=== PATIENT | male | born 1955 | race Caucasian/White ===

== ENCOUNTER 2022-04-10 08:15 | Outpatient (CLI) | payer MEDICARE, SELFPAY ==
--- NOTE | ~2022-04-10 | US_ITS ---
EXAMINATION: US aorta [facility] scr[facility] DATE: 04/10/2022 08:51 INDICATION: Abdominal aortic aneurysm screening TECHNIQUE: Grayscale, color Doppler, and pulsed Doppler images of the aorta and common iliac arteries were obtained. COMPARISON: None. FINDINGS: The proximal aorta measures 2.4 cm. The mid aorta measures 2.1 cm. The distal aorta measures 1.9 cm. The right common iliac artery measures 1.2 cm. The left common iliac artery measures 1.1 cm. IMPRESSION: 1. Normal caliber abdominal aorta Reviewed, dictated and finalized at location A.
== END 2022-04-10 08:16 | disposition home or self-care (01) ==
PROVIDERS: PCP Internal Medicine; Visit Provider Internal Medicine
DX: Z13.6 Encounter for screening for cardiovascular disorders (principal); Z00.00 Encounter for general adult medical examination without abnormal findings
CPT/HCPCS: 76706

== ENCOUNTER 2022-05-08 15:44 | Observation (INO) | payer MEDICARE, SELFPAY ==
[2022-05-08] VITALS (8 sets, daily range): BP systolic 128–142; BP diastolic 66–75; PULSE 51–74; RESP 12–20; TEMP 35.9–36.8; O2SAT 98–99; BMI 26.9
--- NOTE | ~2022-05-08 | XR_ITS ---
EXAMINATION: XR chest 2V DATE: 05/08/2022 16:33 INDICATION: Left-sided chest pain TECHNIQUE: PA and lateral views of the chest were obtained. COMPARISON: None FINDINGS: The lungs are clear with no focal airspace opacities, pulmonary edema, pleural effusion or pneumothor ax. The cardiomediastinal silhouette is normal. Moderate midthoracic spondylosis with mild anterior w edging of a a few mid and lower thoracic vertebral bodies. IMPRESSION: 1. No acute cardiopulmonary disease. Reviewed, dictated and finalized at location B.
--- NOTE | 2022-05-08 15:50 | ECG_ITS ---
Measurements Intervals [place] Rate: 70 P: 53 CT: 175 QRS: -45 QRSD: 106 T: 41 QT: 364 QTc: 393 Interpretive Statements SINUS RHYTHM LEFT ANTERIOR FASCICULAR BLOCK BASELINE ARTIFACT- I, II, AVR, AVL ABNORMAL ECG Electronically Signed On 05-08-2022 16:17:18 CDT by Shaquille Myles D.O.
[2022-05-08 16:06] LABS: Basophils Percent Auto 0.3 % (0.2-1.2); Eosinophils Absolute Auto 0.1 K/mm3 (0-0.3); Eosinophils Percent Auto 1.6 % (0-4.4); Hematocrit 44.2 % (42.0-52.0); Hemoglobin 14.9 g/dL (14.0-18.0); Immature Granulocyte Absolute 0.01 K/mm3 (0.00-0.031); Immature Granulocyte Percent A 0.2 % (0-0.5); Lymphocytes Absolute Auto 1.38 K/mm3 (0.9-3.2); Lymphocytes Percent Auto 21.8 % (18.3-44.2); Mean Corpuscular HGB Conc 33.7 g/dl (32-36); Mean Corpuscular Hemoglobin 29.5 pg (26-34); Mean Corpuscular Volume 87.5 fl (80-100); Monocytes Absolute Auto 0.6 K/mm3 (0.1-0.6); Neutrophils Absolute Auto 4.2 K/mm3 (1.3-6.7); Neutrophils Percent Auto 66.1 % (45.5-73.1); Platelet Count Result 185 k/mm3 (150-375); Red Blood Count 5.05 M/mm3 (4.6-6.20); Red Cell Distribution Width 12.9 % (11.5-14.5); White Blood Count 6.3 K/mm3 (4.5-10.0)
[2022-05-08 16:15] LABS: Partial Thromboplastin Time 26.7 SECONDS (22.3-36.8); Prothrombin Time 12.7 Seconds (11.1-14.7)
[2022-05-08 16:20] LABS: Alanine Aminotransferase 22 U/L (6-50); Albumin Level 4.4 g/dL (3.5-5.1); Alkaline Phosphatase 46 U/L (38-126); Anion Gap 8 mmol/L (8-16); Aspartate Amino Transferase 31 U/L (17-59); Bilirubin,Total 0.4 mg/dL (0.2-1.3); Blood Urea Nitrogen 24 mg/dL (9-20); Calcium 8.8 mg/dL (8.4-10.2); Carbon Dioxide 24 mmol/L (22-30); Chloride 105 mmol/L (98-107); Estimated CRCL calculation 76 ml/min; Estimated Glomerular Filt Rate > 60; Glucose 111 mg/dL (65-110); Lipase 90 U/L (23-300); Potassium 4.2 mmol/L (3.4-5.0); Sodium 137 mmol/L (137-145)
[2022-05-08 16:32] LABS: Troponin I < 0.012 ng/mL (0.000-0.034)
--- NOTE | 2022-05-08 16:53 | ED.CHESTPAIN ---
HPI - Chest Pain General Chief Complaint: Chest Pain Stated Complaint: CP Time Seen by Provider: 05/08/22 16:36 Source: RN notes reviewed History of Present Illness HPI narrative: Patient presents emergency room from home for chest pain. Patient states he been having intermittent chest pain on the left side of the chest for the past 2 days. Pain is described as a choking in nature and does not radiate states nothing makes the pain better or worse. Denies any radiation of the pain. Patient states that the pain will last for approximately an hour and resolving is having proximally 2-3 episodes a day. Denies any previous cardiac history denies any fevers or chills abdominal pain nausea vomiting Related Data Home Medications Medication Instructions Recorded Confirmed fluticasone propionate 50 2 spray intranasal DAILY 11/11/19 03/23/22 mcg/actuation nasal spray,suspension (Allergy Relief (fluticasone)) Allergies Allergy/AdvReac Type Severity Reaction Status Date / Time aspirin Allergy Severe asthma Verified 05/08/22 16:55 NSAIDS (Non-Steroidal Allergy Intermediate INDUCED Verified 05/08/22 16:55 Anti-Inflamma ASTHMA Review of Systems Review of Systems: Gen.: Denies fevers or chills ENT: Denies congestion Respiratory: Denies shortness of breath or cough CV: See HPI GI: Denies abdominal pain nausea, emesis or diarrhea Musculoskeletal: Denies back pain or muscle pain Neuro: Denies numbness, tingling, weakness or focal weakness Skin: Denies rash Except as documented, all other systems reviewed and negative PMFSH Past Medical History Medical History Rhinitis, chronic Screening for metabolic disorder Screening, lipid Sleep apnea in adult Family History Family History Sibling Hypertension Mother Patient's mother is in good health Father Family history of heart disease in male family member before age 55, Onset Age: 82 Patient's father is Social History Social History Smoking status: Former smoker Second hand tobacco smoke exposure: No Smoking end date: 10/29/86 Alcohol intake: current Exam Narrative: APPEARANCE: No acute distress, nontoxic, resting in bed EYES: EOMI HEENT: Normocephalic, atraumatic, OMM RESPIRATORY: No respiratory distress Clear to auscultation bilaterally with no rhonchi wheezing or rales. CARDIOVASCULAR: Regular rate and rhythm without murmurs rubs or gallops. ABDOMINAL: Soft, nontender, nondistended, no rebound or guarding MUSCULOSKELETAl: Moves all extremities. No clubbing, cyanosis or edema. NEURO: Awake and alert. Following commands, speech normal, no focal deficits SKIN:: Warm, dry. No rashes lesions or abrasions PSYCHIATRIC: Normal affect/mood, Course Course Emergency Course: Patient states he is allergic to aspirin and cannot take Discussed with Dr. Collazo presentation work-up agrees with admission [facility] Discussed with patient and family results of workup and diagnosis. Discussed need for admission. Patient and family understand and agree to current treatment plan Vital Signs Vital signs: Vital Signs Temperature 98.2 F 05/08/22 15:47 Pulse Rate 74 05/08/22 15:47 Respiratory Rate 20 05/08/22 15:47 Blood Pressure 142/75 H 05/08/22 15:47 Pulse Oximetry 99 05/08/22 15:47 Oxygen Delivery Room Air 05/08/22 15:47 Temperature 98.2 F 05/08/22 15:47 Pulse Rate 74 05/08/22 15:47 Respiratory Rate 20 05/08/22 15:47 Blood Pressure 142/75 H 05/08/22 15:47 Pulse Oximetry 99 05/08/22 15:47 Oxygen Delivery Room Air 05/08/22 15:47 MDM - Chest Pain Lab Data Result diagrams: 05/08/22 15:57 05/08/22 15:57 Labs: Lab Results 05/08/22 05/08/22 05/08/22 Range/Units 15:57 15:57 15:57
[2022-05-08 17:59] LABS: SARS-CoV-2 RNA PCR Negative
[2022-05-08 20:03] LABS: Troponin I < 0.012 ng/mL (0.000-0.034)
[2022-05-08 22:06] LABS: Troponin I < 0.012 ng/mL (0.000-0.034)
[2022-05-09] VITALS: BP 118/68; PULSE 56; PULSE 60; RESP 16; TEMP 36.4; O2SAT 99
[2022-05-09 04:00] VITALS: BP 106/75; PULSE 54; RESP 20; TEMP 36.6; O2SAT 97
[2022-05-09 05:24] LABS: Basophils Percent Auto 0.4 % (0.2-1.2); Eosinophils Absolute Auto 0.1 K/mm3 (0-0.3); Eosinophils Percent Auto 2.9 % (0-4.4); Hematocrit 42.6 % (42.0-52.0); Immature Granulocyte Absolute 0.01 K/mm3 (0.00-0.031); Immature Granulocyte Percent A 0.2 % (0-0.5); Lymphocytes Absolute Auto 1.47 K/mm3 (0.9-3.2); Lymphocytes Percent Auto 30.5 % (18.3-44.2); Mean Corpuscular HGB Conc 32.9 g/dl (32-36); Mean Corpuscular Hemoglobin 28.9 pg (26-34); Mean Platelet Volume 10.2 fl (7.4-10.4); Monocytes Absolute Auto 0.6 K/mm3 (0.1-0.6); Monocytes Percent Auto 12.9 % (2.6-8.5); Neutrophils Absolute Auto 2.6 K/mm3 (1.3-6.7); Neutrophils Percent Auto 53.1 % (45.5-73.1); Platelet Count Result 159 k/mm3 (150-375); Red Blood Count 4.84 M/mm3 (4.6-6.20); Red Cell Distribution Width 13.1 % (11.5-14.5); White Blood Count 4.8 K/mm3 (4.5-10.0)
[2022-05-09 05:36] LABS: Alanine Aminotransferase 19 U/L (6-50); Albumin Level 3.7 g/dL (3.5-5.1); Alkaline Phosphatase 42 U/L (38-126); Anion Gap 5 mmol/L (8-16); Aspartate Amino Transferase 24 U/L (17-59); Bilirubin,Total 0.5 mg/dL (0.2-1.3); Blood Urea Nitrogen 20 mg/dL (9-20); Calcium 8.4 mg/dL (8.4-10.2); Carbon Dioxide 22 mmol/L (22-30); Chloride 109 mmol/L (98-107); Estimated CRCL calculation 76 ml/min; Estimated Glomerular Filt Rate > 60; Glucose 96 mg/dL (65-110); Potassium 3.9 mmol/L (3.4-5.0); Sodium 136 mmol/L (137-145)
[2022-05-09 07:58] VITALS: BP 114/69; PULSE 55; RESP 12; TEMP 36.6; O2SAT 99
[2022-05-09 08:00] VITALS: PULSE 56
--- NOTE | 2022-05-09 08:53 | PM.CNCAR ---
History of Present Illness History of Present Illness Consult date/time: 05/09/22 08:53 Reason For Visit: Chest Pain Narrative: Mr. Rios is a 66 year old male with PMFSH Past Medical History Medical History Rhinitis, chronic Screening for metabolic disorder Screening, lipid Sleep apnea in adult Family History Family History (Updated 05/08/22 @ 18:46 by Renetta Paz RN) Sibling Hypertension Liver cancer Mother Patient's mother is in good health Father Family history of heart disease in male family member before age 55, Onset Age: 82 Patient's father is Social History Social History Smoking packs per day: 3 Smoking cigarettes per day: 60.0 Years smoked: 5 Smoking pack-years: 15.00 Smoking status: Former smoker Tobacco type: cigarettes Second hand tobacco smoke exposure: No Smoking end date: 10/29/86 Alcohol intake: current Substance use type: marijuana Living arrangements: with family Meds Home Medications and Allergies Home Medications Medication Instructions Recorded Confirmed Type fluticasone propionate 50 2 spray intranasal DAILY PRN 11/11/19 05/08/22 History mcg/actuation nasal Congestion spray,suspension (Allergy Relief (fluticasone)) Allergies Allergy/AdvReac Type Severity Reaction Status Date / Time aspirin Allergy Severe asthma Verified 05/08/22 16:55 NSAIDS (Non-Steroidal Allergy Intermediate INDUCED Verified 05/08/22 16:55 Anti-Inflamma ASTHMA Vital Signs Vital Signs - 24 hr 05/08/22 15:47 05/08/22 17:53 05/08/22 18:00 Temperature 36.8 C Pulse Rate 74 59 L 59 L Respiratory Rate 20 15 14 Blood Pressure 142/75 H Pulse Oximetry 99 98 99 Oxygen Delivery Room Air 05/08/22 18:01 05/08/22 18:24 05/08/22 18:40 Temperature 36.6 C Pulse Rate 57 L 56 L Respiratory Rate 18 12 Blood Pressure 129/66 129/66 128/66 Pulse Oximetry 98 98 Oxygen Delivery 05/08/22 20:00 05/08/22 20:00 05/08/22 20:00 Temperature 35.9 C L Pulse Rate 63 65 Respiratory Rate 18 Blood Pressure 142/71 H Pulse Oximetry 99 Oxygen Delivery Room Air 05/08/22 22:00 05/09/22 00:00 05/09/22 00:00 Temperature 36.4 C L Pulse Rate 51 L 60 56 L Respiratory Rate 16 Blood Pressure 118/68 Pulse Oximetry 99 Oxygen Delivery 05/09/22 04:00 05/09/22 07:58 Temperature 36.6 C 36.6 C Pulse Rate 54 L 55 L Respiratory Rate 20 12 Blood Pressure 106/75 114/69 Pulse Oximetry 97 99 Oxygen Delivery Results Labs and Meds Result diagrams: 05/09/22 05:02 05/09/22 05:02 Lab results: Cardiac Enzymes 05/08/22 05/08/22 05/08/22 Range/Units 15:57 19:17 21:39 AST 31 (17-59) U/L Troponin I < 0.012 < 0.012 < 0.012 (0.000-0.034) ng/mL 05/09/22 Range/Units 05:02 AST 24 (17-59) U/L Troponin I (0.000-0.034) ng/mL Coagulation 05/08/22 Range/Units 15:57 PT 12.7 (11.1-14.7) Seconds APTT 26.7 (22.3-36.8) SECONDS CBC 05/08/22 05/09/22 Range/Units 15:57 05:02 WBC 6.3 4.8 (4.5-10.0) K/mm3 RBC 5.05 4.84 (4.6-6.20) M/mm3 Hgb 14.9 14.0 (14.0-18.0) g/dL Hct 44.2 42.6 (42.0-52.0) % Plt Count 185 159 (150-375) k/mm3 Lymph # (Auto) 1.38 1.47 (0.9-3.2) K/mm3 [place] # (Auto) 0.6 0.6 (0.1-0.6) K/mm3 Eos # (Auto) 0.1 0.1 (0-0.3) K/mm3 Baso # (Auto) 0.0 0.0 (0.0-0.1) K/mm3 Comprehensive Metabolic Panel 05/08/22 05/09/22 Range/Units 15:57 05:02 Sodium 137 136 L (137-145) mmol/L Potassium 4.2 3.9 (3.4-5.0) mmol/L Chloride 105 109 H (98-107) mmol/L Carbon Dioxide 24 22 (22-30) mmol/L BUN 24 H 20 (9-20) mg/dL Creatinine 0.90 0.90 (0.7-1.3) mg/dL Glucose 111 H 96 (65-110) mg/dL Calcium 8.8 8.4 (8.4-10.2) mg/dL AST 31 24 (17-59) U/L ALT 22 19 (6-50)
--- NOTE | 2022-05-09 09:21 | PM.IMHP ---
H&P: HPI History of Present Illness Date/Time: 05/09/22 09:21 <YURY Schaffer - Last Filed: 05/09/22 10:39> Chief Complaint: Chest pain <YURY Schaffer - Last Filed: 05/09/22 10:39> Narrative: Mr. Rios is a 66 year old male with no significant medical history who presents to the hospital with a complaint of left sided chest pain. He began experiencing intermittent episodes of chest pain about a week ago and states he has been having several episodes of chest pain daily that lasts about an hour. Intensity of the pain is 1-2 and is described as general discomfort/soreness. He denies any associated nausea, diaphoresis, or radiation of the pain to any other location. Did experience some dizziness yesterday after working outside in the heat. No specific aggravating or alleviating factors. Does endorse some muscular soreness/tenderness at the location of pain but is not reproducible to palpation at this time. Currently comfortable and free from chest pain but does state that he has had a couple episodes of chest discomfort since presentation to the hospital. He notes that he and his recently moved and he has been lifting lots of heavy boxes/objects. He is very active and denies having any exertional chest pain. <YURY Schaffer - Last Filed: 05/09/22 10:39> Review of Systems Constitutional: Constitutional: Denies chills, Denies fever(s), Denies headache(s) and Denies malaise <YURY Schaffer - Last Filed: 05/09/22 10:39> Eyes: Eyes: Denies change in vision <YURY Schaffer - Last Filed: 05/09/22 10:39> ENT: Reports Normal hearing present, Denies dizziness, Denies headache(s) and Denies hearing loss <YURY Schaffer - Last Filed: 05/09/22 10:39> Cardiovascular: Cardiovascular: Reports chest pain, Reports chest pain at rest, Denies chest pain with activity, Denies syncope, Denies leg edema, Denies palpitations, Denies dyspnea and Denies dyspnea on exertion <YURY Schaffer - Last Filed: 05/09/22 10:39> Respiratory: Respiratory: Denies cough, Denies dyspnea, Denies dyspnea on exertion and Denies wheezing <YURY Schaffer - Last Filed: 05/09/22 10:39> Gastrointestinal: Gastrointestinal: Denies abdominal pain, Denies constipation and Denies diarrhea <YURY Schaffer - Last Filed: 05/09/22 10:39> Genitourinary: Genitourinary: Denies hematuria and Denies dysuria <YURY Schaffer - Last Filed: 05/09/22 10:39> Musculoskeletal: Musculoskeletal: Denies myalgias, Denies arthralgias and Denies muscle cramps <YURY Schaffer - Last Filed: 05/09/22 10:39> Integumentary/Breasts: Skin/Breast: Denies wounds <YURY Schaffer - Last Filed: 05/09/22 10:39> Neurologic: Reports Normal hearing present, Denies confusion, Denies dizziness, Denies syncope and Denies headache(s) <YURY Schaffer - Last Filed: 05/09/22 10:39> Psychiatric: Psychiatric: Denies anxiety, Denies confusion and Denies depression <YURY Schaffer - Last Filed: 05/09/22 10:39> Endocrine: Endocrine: Denies cold intolerance, Denies flushing, Denies heat intolerance and Denies palpitations <YURY Schaffer - Last Filed: 05/09/22 10:39> Hematologic/Lymphatic: Hematologic/Lymphatic: Denies easy bleeding and Denies easy bruising <YURY Schaffer - Last Filed: 05/09/22 10:39> Allergic/Immunologic: Allergic/Immunologic: Denies wheezing <YURY Schaffer - Last Filed: 05/09/22 10:39> PMFSH Past Medical History Medical History: Medical History Rhinitis, chronic Screening for metabolic disorder Screening, lipid Sleep apnea in adult <Federica Martinez APN-C - Last Filed: 05/09/22 10:39> Family History Family History: Family History (Updated 05/08/22 @ 18:46 by Renetta Paz, RN) Sibling Hypertension Liver cancer Mother Patient's mother is in good health Father Dece
[2022-05-09 10:00] VITALS: PULSE 58
--- NOTE | 2022-05-09 10:40 | PM.DS ---
DS: Admitting Diagnosis Discharge Date 05/09/2022 Admitting Diagnosis chest pain DS: Discharge Diagnosis Discharge Diagnosis (1) Chest pain: Code(s): R07.9 - Chest pain, unspecified Status: Acute Assessment and Plan: Atypical chest pain probably musculoskeletal. EKG shows sinus rhythm with LAFB, no ST-T segment abnormalities concerning for ischemia. Serial cardiac enzymes are negative. No significant risk factors for CAD, although CAD cannot be excluded. Plan to discharge patient home with intention of pursuing exercise stress test in the office within the next couple of weeks. Discussed this plan with patient who is agrees and is comfortable with this plan. DS: Summary Hospital Course Reason for hospitalization: chest pain Hospital Course: Entered hospital with chest pain, admitted for further evaluation. Has had some episodes of chest discomfort while hospitalized. No evidence of ACS, chest pain atypical and not cardiac. Plan to discharge patient home today with intention of outpatient stress test in the office. Time Spent with Patient Time attestation: Total time spent providing and/or coordinating discharge services: 45 minutes Exam Const: General: comfortable, no acute distress, alert and awake; No confusion Orientation/consciousness: patient oriented x3 and No confusion HENMT: Head: normal to inspection Eyes: General: appearance normal, both eyes and all related structures Pupils: Equal, round and reactive pupils present Neck: Neck: normal visual inspection, supple and no JVD Carotids: normal carotid upstroke Resp: Effort & Inspection: normal respiratory effort Auscultation: clear to auscultation bilaterally Cardio: Rate: regular rate Rhythm: regular rhythm Heart sounds: S1 normal heart sound present, S2 normal heart sound present and no murmurs GI: Auscultation: normal bowel sounds Skin: General skin exam: normal color Neuro: General: patient oriented x3 and No confusion Cranial nerves: Yes Equal, round and reactive pupils present and Yes Normal hearing present Extrem: General: normal to inspection Psych: Appearance: grossly normal Mental Status: mental status grossly normal DS: Data Data Completed and Pending Labs on day of discharge: Labs from last 24 hours 05/09/22 05/09/22 05/08/22 05:02 05:02 21:39 WBC 4.8 RBC 4.84 Hgb 14.0 Hct 42.6 MCV 88.0 MCH 28.9 MCHC 32.9 RDW 13.1 Plt Count 159 MPV 10.2 Immature Gran % (Auto) 0.2 Neut % (Auto) 53.1 Lymph % (Auto) 30.5 [place] % (Auto) 12.9 H Eos % (Auto) 2.9 Baso % (Auto) 0.4 Lymph # (Auto) 1.47 [place] # (Auto) 0.6 Eos # (Auto) 0.1 Baso # (Auto) 0.0 Abs Immat Gran (auto) 0.01 Absolute Neuts (auto) 2.6 Absolute Nucleated RBC 0.0 Nucleated RBC % 0.0 PT INR APTT Sodium 136 L Potassium 3.9 Chloride 109 H Carbon Dioxide 22 Anion Gap 5 L BUN 20 Creatinine 0.90 Estim Creat Clear Calc 76 Estimated GFR > 60 Glucose 96 Calcium 8.4 Total Bilirubin 0.5 AST 24 ALT 19 Alkaline Phosphatase 42 Troponin I < 0.012 Total Protein 6.0 L Albumin 3.7 Lipase SARS-CoV-2 RNA (RT-PCR) 05/08/22 05/08/22 05/08/22 19:17 17:17 15:57 WBC RBC Hgb Hct MCV MCH MCHC RDW Plt Count MPV Immature Gran % (Auto) Neut % (Auto) Lymph % (Auto) [place] % (Auto) Eos % (Auto) Baso % (Auto) Lymph # (Auto) [place] # (Auto) Eos # (Auto) Baso # (Auto) Abs Immat Gran (auto) Absolute Neuts (auto) Absolute Nucleated RBC Nucleated RBC % PT INR APTT Sodium 137 Potassium 4.2 Chloride 105 Carbon Dioxide 24 Anion Gap 8 BUN 24 H Creatinine 0.90 Estim Creat Clear Calc 76 Estimated GFR > 60 Glucose 111 H Calcium 8.8 Total Bilirubin 0.4 AST 31 ALT 22 Alkaline Phosphatase
== END 2022-05-09 11:44 | disposition home or self-care (01) ==
LOC: ANHED 17:29 → ANHIMU 17:45
PROVIDERS: Admitting Provider Internal Medicine Cardiovascular Disease; Emergency Provider Emergency Medicine; PCP Family Medicine; Visit Provider Internal Medicine Cardiovascular Disease
DX: R07.9 Chest pain, unspecified (principal); J31.0 Chronic rhinitis; G47.30 Sleep apnea, unspecified; F12.90 Cannabis use, unspecified, uncomplicated; Z87.891 Personal history of nicotine dependence; Z20.822 Contact with and (suspected) exposure to COVID-19; Z79.51 Long term (current) use of inhaled steroids; I44.4 Left anterior fascicular block
CPT/HCPCS: 36415; 71046; 80053; 83690; 84484; 85025; 85610; 85730; 93005; 99285; C9803; G0378; U0003; U0005

== ENCOUNTER 2023-01-16 07:30 | Outpatient (CLI) | payer MEDICARE, SELFPAY ==
--- NOTE | 2023-01-16 07:42 | ECHO_ITS ---
Patient Info Name: Khai Rios Age: 67 years : 1955 Gender: Male Ht: 71 in Wt: 200 lbs BSA: 2.15 m2 HR: 60 bpm BP: 132 / 80 mmHg Technical Quality: Good Exam Date: 01/16/2023 7:51 AM Exam Location: [facility] Patient Status: Outpatient Admit Date: 01/16/2023 Staff Ordering Physician: Jimbo Kwon DO Dry Color Tester: Andreea Stewart RDCS Attending Provider: Jimbo Kwon DO Referring Physician: Doyle MCWILLIAMS; Exam Type: CA echo doppler color flow Study Info Indications R06.09 - Other forms of dyspnea Complete two-dimensional, color flow and Doppler transthoracic echocardiogram is performed. Summary 1. Complete two-dimensional, color flow and Doppler transthoracic echocardiogram is performed. 2. Left ventricular chamber dimension is normal. 3. Left ventricular systolic function is normal, estimated at 60-65%. 4. The left ventricular diastolic function is grade I diastolic dysfunction. 5. E/e' 7 is not elevated. 6. Global longitudinal strain is mildly abnormal at -16.8%. 7. No pulmonary hypertension, estimated pulmonary arterial systolic pressure is 27 mmHg. Left Ventricle E/e' 7 is not elevated. Global longitudinal strain is mildly abnormal at -16.8%. Left ventricular chamber dimension is normal. Left ventricular systolic function is normal, estimated at 60-65%. The left ventricular diastolic function is grade I diastolic dysfunction. Right Ventricle Right ventricular systolic function is normal and with normal TAPSE 2.2 cm. Right ventricular chamber dimension is normal. Left Atria Left atrial chamber dimension is normal. Right Atria Right atrial chamber dimension is normal. Aortic Valve The aortic valve is trileaflet. There is no aortic valve stenosis. There is no aortic valve regurgitation. Pulmonic Valve There is no pulmonic regurgitation. Mitral Valve There is no mitral valve stenosis. There is no mitral valve regurgitation. Tricuspid Valve There is no tricuspid valve regurgitation. No pulmonary hypertension, estimated pulmonary arterial systolic pressure is 27 mmHg. Pericardium/Pleural There is no pericardial effusion. Inferior Vena Cava Normal inferior vena cava with >50% collapse upon inspiration consistent with normal right atrial pressure, 5 mmHg. Aorta The aortic root size at the sinus of Valsalva is normal. Left Ventricular Outflow Tract Name Value Normal LVOT 2D LVOT Diameter 2.0 cm LVOT Doppler LVOT Peak Gradient 4 mmHg LVOT Mean Gradient 2 mmHg LVOT VTI 20 cm LVOT VTI/AV VTI Ratio 0.9 LVOT Stroke Volume 64 ml LVOT CO 3.6 l/min LVOT CI 1.7 l/min/m2 Pulmonic Valve Name Value Normal RVOT Doppler
--- NOTE | 2023-01-18 15:23 | WPDHOLTEREM ---
Holter/Event Monitor Holter/Event Monitor Date of procedure: 01/16/23 Holter/Event Procedure: 48 Hr Holter Monitor Indications: Cardiac arrhythmia Conclusion: 1. 48 hour holter monitor on 01/16/23. 2. Underlying rhythm is sinus rhythm. HR range 42-122 bpm; average HR 68 bpm. HR at 42 bpm was at 03:47. 3. There are 105 premature supraventricular complexes and 16 supraventricular bigeminy. No supraventricular tachycardia. 4. There are 4 premature ventricular complexes and 1 ventricular triplet. No ventricular tachycardia. 5. No sinoatrial or atrioventricular blocks. No significant pauses greater than 2 seconds. 6. Patient reports symptoms of strong heart beat which demonstrate sinus bradycardia at 58 bpm.
== END 2023-01-16 07:31 | disposition home or self-care (01) ==
LOC: ANHCARD 07:31
PROVIDERS: PCP Family Medicine; Visit Provider Family Medicine
DX: R07.9 Chest pain, unspecified (principal); I49.9 Cardiac arrhythmia, unspecified; R06.09 Other forms of dyspnea
CPT/HCPCS: 93225; 93226; 93306

== ENCOUNTER 2024-04-14 08:30 | Outpatient (CLI) | payer MEDICARE, SELFPAY ==
[2024-04-14 13:52] LABS: Alanine Aminotransferase 22 U/L (6-50); Albumin Level 4.1 g/dL (3.5-5.1); Alkaline Phosphatase 49 U/L (38-126); Anion Gap 7 mmol/L (4-12); Aspartate Amino Transferase 45 U/L (17-59); Bilirubin,Total 0.8 mg/dL (0.2-1.3); Blood Urea Nitrogen 19 mg/dL (9-20); Carbon Dioxide 24 mmol/L (22-30); Chloride 107 mmol/L (98-107); Cholesterol 162 mg/dL (0-200); Estimated Glomerular Filt Rate > 60; Glucose 93 mg/dL (65-110); HDL Direct 47 mg/dL; Potassium 4.2 mmol/L (3.4-5.0); Sodium 138 mmol/L (137-145); Triglycerides 52 mg/dL (<150)
[2024-04-14 14:16] LABS: Prostate Specific Antigen 6.7 ng/mL (< OR = 4.0)
[2024-04-14 14:21] LABS: LDL Cholesterol Direct 101 mg/dL
[2024-04-14 14:25] LABS: Vitamin D 25 Hydroxy 34.1 ng/mL
== END 2024-04-14 08:31 | disposition home or self-care (01) ==
LOC: ANHGOSHLAB 08:31
PROVIDERS: PCP Family Medicine; Visit Provider Family Medicine
DX: Z12.5 Encounter for screening for malignant neoplasm of prostate (principal); Z13.228 Encounter for screening for other metabolic disorders; E55.9 Vitamin D deficiency, unspecified; Z13.220 Encounter for screening for lipoid disorders
CPT/HCPCS: 36415; 80053; 80061; 82306; 84153; G0103

== ENCOUNTER 2024-05-12 10:22 | Outpatient (CLI) | payer MEDICARE, SELFPAY | END 2024-05-12 10:23 | disposition home or self-care (01) | PROVIDERS: PCP Family Medicine; Visit Provider Family Medicine | DX: R97.20 Elevated prostate specific antigen [PSA] (principal) | CPT/HCPCS: 36415; 84153 ==

== ENCOUNTER 2024-06-04 15:05 | Outpatient (CLI) | payer MEDICARE, SELFPAY ==
--- NOTE | ~2024-06-04 | XR_ITS ---
3 VIEWS THORACIC SPINE Ordering provider: Jimbo Kwon DO History: . Cervicalgia. post pain adjacent to L shoulder blade,no inj . Comparison: None. FINDINGS: VERTEBRAL BODIES: Loss of height is seen in the midthoracic area and multiple vertebrae. Most likely old changes. No definite visible acute fracture or subluxation. Degenerative changes of the spine. DISK SPACES: Multilevel degenerative disc disease in the mid and lower thoracic area. SOFT TISSUES: Normal. IMPRESSION: No definite acute osseous abnormality of the thoracic spine. Multilevel anterior loss of height suggestive of chronic compression fractures in the mid and lower t horacic area. Reviewed, dictated and finalized at location A. IMPRESSION: No definite acute osseous abnormality of the thoracic spine. Multilevel anterior loss of height suggestive of chronic compression fractures in the mid and lower thoracic area.
--- NOTE | ~2024-06-04 | XR_ITS ---
XR shoulder LT min 2V 06/04/2024 15:24 Indication: Left shoulder pain Procedure: 5 views left shoulder Comparison: No prior studies for comparison. Findings: There is mild glenohumeral joint osteoarthritis. No fracture or traumatic malalignment. No soft tissue abnormality. No foreign bodies. Impression: 1: Mild left glenohumeral joint osteoarthritis. Reviewed, dictated and finalized at location B. Impression: 1: Mild left glenohumeral joint osteoarthritis.
== END 2024-06-04 15:06 | disposition home or self-care (01) ==
LOC: ANHIMG 15:06
PROVIDERS: PCP Family Medicine; Visit Provider Family Medicine
DX: M19.012 Primary osteoarthritis, left shoulder (principal); R29.890 Loss of height
CPT/HCPCS: 72072; 73030

== ENCOUNTER 2025-04-13 08:59 | Outpatient (CLI) | payer MEDICARE, SELFPAY ==
--- OUTSIDE RECORDS SUMMARY | 2025-04-13 09:21 | XMS_ITS | Clinical Summary ---
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[employer] Gender Identity Not on file Sexual Orientation Not on file Plan of Treatment Health Maintenance Due Date Last Done Comments DTAP/TDAP/TD VACCINES (1 - Tdap) 1975 COLORECTAL SCREENING 2001 Colorectal Cancer Screening 2001 FIT-DNA Q 3 years 2001 FIT/FOBT Q 1 year 2001 Flex Sig/CT Colonography Q 5 years 2001 PNEUMOCOCCAL VACCINE 50+ YEA RS (1 of 1 - PCV) 2006 ZOSTER VACCINE (1 of 2) 2006 INFLUENZA VACCINE (#1) 2024 08/04/2019 COVID-19 Vaccine ( season) 2024, 11/23/2020 RSV VACCINE (60+ or ) (1 - 1-dose 75+ series) 2031 Insurance [employer] BLUE ACCESS/TRUE BLUE PPO Care Teams Department Assistant Relationship Specialty Start Date End Date Mike Reyes MD [address] [place] [phone] PCP - General Internal Medicine 12/14/20
[2025-04-13 21:03] LABS: Basophils Absolute Auto 0.1 K/mm3 (0.0-0.1); Basophils Percent Auto 0.9 % (0.2-1.2); Eosinophils Absolute Auto 0.1 K/mm3 (0-0.3); Eosinophils Percent Auto 2.4 % (0-4.4); Hematocrit 45.7 % (42.0-52.0); Hemoglobin 14.8 g/dL (14.0-18.0); Immature Granulocyte Absolute 0.01 K/mm3 (0.00-0.031); Immature Granulocyte Percent A 0.2 % (0-0.5); Lymphocytes Absolute Auto 1.61 K/mm3 (0.9-3.2); Lymphocytes Percent Auto 29.9 % (18.3-44.2); Mean Corpuscular HGB Conc 32.4 g/dl (32-36); Mean Corpuscular Hemoglobin 28.5 pg (26-34); Mean Corpuscular Volume 88.1 fl (80-100); Mean Platelet Volume 10.8 fl (7.4-10.4); Monocytes Absolute Auto 0.6 K/mm3 (0.1-0.6); Monocytes Percent Auto 10.8 % (2.6-8.5); Neutrophils Percent Auto 55.8 % (45.5-73.1); Platelet Count Result 188 k/mm3 (150-375); Red Blood Count 5.19 M/mm3 (4.6-6.20); Red Cell Distribution Width 13.3 % (11.5-14.5); White Blood Count 5.4 K/mm3 (4.5-10.0)
[2025-04-13 22:04] LABS: Alanine Aminotransferase 25 U/L (6-50); Albumin Level 4.3 g/dL (3.5-5.1); Alkaline Phosphatase 46 U/L (38-126); Anion Gap 5 mmol/L (4-12); Aspartate Amino Transferase 36 U/L (17-59); Bilirubin,Total 0.6 mg/dL (0.2-1.3); Blood Urea Nitrogen 19 mg/dL (9-20); Calcium 9.4 mg/dL (8.4-10.2); Carbon Dioxide 27 mmol/L (22-30); Chloride 106 mmol/L (98-107); Cholesterol 178 mg/dL (0-200); Estimated Glomerular Filt Rate > 60; Glucose 94 mg/dL (65-110); HDL Direct 48 mg/dL; Potassium 4.8 mmol/L (3.4-5.0); Sodium 138 mmol/L (137-145); Total Protein 7.2 g/dL (6.3-8.2); Triglycerides 99 mg/dL (<150)
[2025-04-13 22:14] LABS: LDL Cholesterol Direct 95 mg/dL
== END 2025-04-13 09:00 | disposition home or self-care (01) ==
LOC: ANHGOSHLAB 09:00
PROVIDERS: PCP Internal Medicine; Visit Provider Nurse Practitioner
DX: E78.5 Hyperlipidemia, unspecified (principal); Z13.220 Encounter for screening for lipoid disorders; Z13.228 Encounter for screening for other metabolic disorders; Z13.29 Encounter for screening for other suspected endocrine disorder
CPT/HCPCS: 36415; 80053; 80061; 85025

== ENCOUNTER 2025-10-19 11:07 | Emergency (ER) | payer MEDICARE, SELFPAY ==
--- OUTSIDE RECORDS SUMMARY | 2025-07-16 08:20 | XMS_ITS ---
Author Organization 1 OF [facility] Address [address] [place] [address] Care Team Providers Care Machinist General Name Role Phone UNKNOWN, UNKNOWN Primary Care Provider Unavailab Tien Donahue Unavailable Allergies Allergen (clinical drug ingredient) Drug/Non Drug Allergy documented on EMR Reaction Allergy Type Onset Date Status aspirin Aspirin Unknown Drug Allergy Active Non-steroidal anti-inflammatory agent (FN) NSAIDs Unknown Drug Allergy Active REASON FOR VISIT RFC Rt foot pain / bump on bottom of foot Medications Medication SIG (Take, Route, Frequency, Duration) Notes Start Date End Date Status Omeprazole Active Social History Tobacco Use: Social History Observation Description Date Details (start date - stop date) Former Smoker NA - NA Social History Tobacco Use: Social Info Question Answer Notes Tobacco Control (Standard) Tobacco use: Former smoker Additional Details Category Social Info Options Details Miscellaneous: Exercise: 3-4 times per week Drugs/Alcohol: Do you smoke marijuana? 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 Advised against Hoka brand if he feels unstable, as his foot type may not be suitable. - Discussion regarding custom orthotics. Explained they are made on-site and cost $477. Not covered by Medicare or his secondary insurance, but may be covered by his flex plan. For his condition, a metatarsal pad would be incorporated to offload pressure from the bony prominence. Plan is to try new shoes first and consider orthotics if symptoms persist. - Advised to stay away from [employer] as they sell expensive, [id number] inserts. - Recommended wearing hiking boots when on rough terrain. - Provided a coupon for [employer] [facility]. - Follow-up in one month to assess progress. Advised he can cancel the appointment if doing well. Interventions: - The callus under the third metatarsal head on the right foot was debrided with a scalpel. - Patient education provided on the importance of supportive footwear and the role of a stiff sole in reducing stress on the foot. Explained how loss of the fatty cushion on the ball of the foot contributes to the issue. Showed a sample of our custom orthotic. Evaluation: - Patient expressed understanding of the plan. Scheduled follow-up appointment. Plan Of Treatment Treatment Notes Assessment Notes Other Plan: - Recommended new, supportive athletic shoes (e.g., Powell, New Balance, Saucony, Hoka). Advised against [employer]oka brand if he feels unstable, as his foot type may not be suitable. - Discussion regarding custom orthotics. Explained they are made on-site and cost $477. Not covered by Medicare or his secondary insurance, but may be covered by his flex plan. For his condition, a metatarsal pad would be incorporated to offload pressure from the bony prominence. Plan is to try new shoes first and consider orthotics if symptoms persist. - Advised to stay away from [employer] as they sell expensive, [id number] inserts. - Recommended wearing hiking boots when on rough terrain. - Provided a coupon for [employer] shoe store. - Follow-up in one month to assess progress. Advised he can cancel the appointment if doing well. Interventions: - The callus under the third metatarsal head on the right foot was debrided with a scalpel. - Patient education provided on the importance of supportive footwear and the role of a stiff sole in reducing stress on the foot. Explained how loss of the fatty cushion on the ball of the foot contributes to the issue. Showed a sample of our custom orthotic. Evaluation: - Patient expressed understanding of the plan. Scheduled follow-up appointment. History and Physical Notes * HPI (History of Present Illness) Category Sub-Category Detail Notes Category Not es MA assisting with visit: HPI/Rooming: Luis Alfredo Chart Prep Leonardo Examination Category Sub-Category Detail Notes Category Not es General Examination Mental status: Cooperative, Oriented to person, place and time, Mood and affect: normal, Judgement and intellect: normal with appropriate response to questions Shoes today: slip on shoes Constitutional / Appearance: No acute di stress , Well nourished, Appropriate personal hygiene Lower Extremity VASCULAR: Venous insufficiency edema: insignificant bilateral Pulses: DP pulse diminished bilateral; PT pulse absent bilateral Temperature gradient: decreased from pro ximal to distal bilateral Pedal hair: sparse / absent bila teral Lower Extremity NEURO: General sensation appears XXXX Muscle tone diminished bilateral Lower Extremity MSK: Foot type: Bilateral lower extr emity exhibits Diagnostic Studies: X-rays of left lower extremity: 3 views of left foot: Significant findings include: X-rays of right lower extremity: 3 views of right foot: , Significant findings include: Lower Extremity DERM: Skin: relatively dry, thin, atrophic, no suspicious lesions, bilateral Nails: Nail plates of: TA-T 9 appear relatively thickened, dystrophic, discolored, incurvated. Hyperkeratotic lesions LEFT foot: no sig nificant hpk lesions noted Hyperkeratotic lesions RIGHT foot: sub 3 rd Progress Notes * Krish RIOS:[birth year] (70 yo M)Acc No.[id number]:07/16/2025 Progress Notes Patient: Khai Mccarty Provider: Orin Sultana DPM :1955 A ge:70 Y S ex:Male Date:07/16/2025 Address:[address] , [facility] Pcp:UNKNOWN UNKNOWN Subjective: * Chief Complaints: * R FC Rt foot pain / bump on bottom of foot * HPI: Erna Murphy assisting with visit:: Chart Prep Dominic wilson. HPI/Rooming: Ava srivastava reason for visit:: 70 year old male PTO - Right foot pain. - Reports a callus on the bottom of the right foot that swells and feels bad. The callus recurs despite being ground down. Onset over the last several months, getting progressively worse. Reports relief when grinding the callus off. States cannot wait to remove shoes at the end of the day. - No significant pain reported when standing barefoot in the office today. - PMHx: Previous use of custom orthotics years ago, which were helpful but wore out. History of recurrent ankle sprains on both feet. History of a left ankle fracture (likely fibula) from rolling over on a curb in [place]; was not casted per preference. Notes presence of bone spurs was mentioned to him after reviewing the X-ray for that injury. - Current medications: None mentioned. 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 Stood for four hours yesterday. Walks a lot. Wears waterproof, flexible-soled shoes for work. Sometimes works on rough terrain, for which he wears hiking boots. Semi-retired from [employer]. - Allergies: None mentioned. Objective: - Physical examination findings: Callus noted under the third metatarsal head of the right foot. A small callus is also present on another area of the foot, which is non-symptomatic. Plantar fat pad atrophy, bilateral. - Gait analysis and biomechanical examination findings: Examination of stance reveals a fairly normal foot type. The patient's shoes are noted to be excessively flexible in the sole, providing minimal support. Uses minimally supportive prefabricated insoles. - Results of any diagnostic tests performed or reviewed: In-office X-ray of the right foot reviewed. Second and third metatarsals are of almost equal length. The fourth metatarsal is significantly shorter. The third metatarsal is slightly long, disrupting the normal parabolic curve and creating a pressure point. Assessment: - Prominent third metatarsal, right foot, causing a painful callus. - Plantar fat pad atrophy, bilateral. * Medical History: Asthma Gastroesophageal reflux disease (GERD) Cancer Medical History Verified * Surgical History: Denies Past Surgical History. Surgical History verified. * Family History: F amily History Verified.. diabetes. * Social History: T obacco Use: T obacco Control (Standard) T obacco use: F ormer smoker D rugs/Alcohol: D o you smoke marijuana?: Denies. Alcohol use: Social alcohol use. Recreational drugs: Patient denies recreational drug use. M iscellaneous: E xercise: 3-4 times per week. S ocial History Verified. * Medications: T akingOmeprazole Medication List reviewed and reconciled with the patientTaking Omeprazole Medication List reviewed and reconciled with the patient * Allergies: A spirinNSAIDs Objective: * Vitals: W t:195lbs, Wt-k.45 kg, Ht:70in, BMI:27.98Index. * Examination: G eneral Examination: Constitutional / Appearance: N o acute distress , Well nourished, Appropriate personal hygiene. Mental status: C ooperative, Oriented to person, place and time, Mood and affect: normal, Judgement and intellect: normal with appropriate response to questions. Shoes today: s lip on shoes. L ower Extremity VASCULAR: : Pulses: D P pulse diminished bilateral; PT pulse absent bilateral. Temperature gradient: d ecreased from proximal to distal bilateral. Pedal hair: s parse / absent bilateral. Venous insufficiency edema: i nsignificant bilateral. ? L ower Extremity DERM: : Skin: r elatively dry, thin, atrophic, no suspicious lesions, bilateral. Nails: N ail plates of:TA-Y0sxntde relatively thickened, dystrophic, discolored, incurvated. . Hyperkeratotic lesions LEFT foot: n o significant hpk lesions noted. Hyperkeratotic lesions RIGHT foot: s ub 3rd. ? L ower Extremity NEURO: : General sensation appears X XXX. Muscle tone d iminished bilateral. L ower Extremity MSK: : Foot type: B ilateral lower extremity exhibits. ? D iagnostic Studies: : X-rays of left lower extremity: 3 views ofleftfoot: Significant findings include: . X-rays of right lower extremity: 3 views ofrightfoot: , Significant findings include: . Assessment: * Assessment: 1. P rominent metatarsal head of right foot - M21.6X1 (Primary) 2 . 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 Modifiers: [place] 71191 X-RAY FOOT (3 views). Modifiers: RT * Electronic signature of Chava Sultana DPM on 10/19/2025 at 01:02 PM SURFACE WATER MANAGER Sign off status: Pending * Provider: Orin Sultana [facility] Date: 0 07/16/2025 Generated for Glen fallon/Anabella/Vijayitting on: 1 12/20/2024 01:02 PM SURFACE WATER MANAGER
--- OUTSIDE RECORDS SUMMARY | 2025-08-25 01:40 | XMS_ITS ---
Author Organization 1 OF [facility] Address [address] [place] [address] Care Team Providers Care Pastry Chef Name Role Phone UNKNOWN, UNKNOWN Primary Care Provider Unavailab Tien Donahue Unavailable [phone] REASON FOR VISIT f/u Prominent metatarsal head of right foot Encounters Encounter Location Date Provider Diagnosis 1 OF [facility] [address] [place] [address] 08/25/2025 Tien Sultana Plan Of Treatment No Information Progress Notes * GABRIELKhaiDOB:[birth year] (70 yo M)Acc No.[id number]:08/25/2025 Progress Notes Patient: Khai Mccarty Provider: Orin Sultana DPM :1955 A ge:70 Y S ex:Male Date:08/25/2025 Address:[address] , [facility] Pcp:UNKNOWN UNKNOWN Subjective: * Chief Complaints: * f /u Prominent metatarsal head of right foot * Electronic signature of Chava Sultana DPM on 10/19/2025 at 01:02 PM BOTTLING ROOM WORKER Sign off status: Pending * Provider: Orin Sultana [facility] Date: Generated for Printi ng/Faxing/eTransmitting on: 12/20/2024 01:02 PM BOTTLING ROOM WORKER
--- OUTSIDE RECORDS SUMMARY | 2025-09-03 04:00 | XMS_ITS ---
Author Organization 1 OF Orin [facility]gen [facility] Address [address] [address] Care Team Providers Care Photo Finisher Name Role Phone UNKNOWN, UNKNOWN Primary Care Provider Unavailab Tien Donahue Unavailable REASON FOR VISIT Orthotic FABRICATE Encounters Encounter Location Date Provider Diagnosis [facility] [address] [facility] [address] [place] [address] 09/03/2025 Tien Sultana Plan Of Treatment No Information Progress Notes * TANISHA KhaiDOB:[birth year] (70 yo M)Acc No.[id number]:09/03/2025 Progress Notes Patient: Khai Mccarty Provider: Orin Sultana DPM :1955 A ge:70 Y S ex:Male Date:09/03/2025 Address:[address] [id number] Pcp:UNKNOWN UNKNOWN Subjective: * Chief Complaints: * O rthotic FABRICATE * Electronic signature of Chava Sultana DPM on 10/19/2025 at 01:02 PM ADULT MANAGER Sign off status: Pending * Provider: Orin Sultana [facility] Date: 11/03/2024 Generated for Terrai ng/Faxing/eTransmitting on: 12/20/2024 01:02 PM ADULT MANAGER
--- OUTSIDE RECORDS SUMMARY | 2025-09-18 01:40 | XMS_ITS ---
Author Organization 1 OF [facility] Address [address] [address] Care Team Providers Care Educational Psychologist Name Role Phone UNKNOWN, UNKNOWN Primary Care Provider Unavailab Tien Donahue Unavailable Allergies Allergen (clinical drug ingredient) Drug/Non Drug Allergy documented on EMR Reaction Allergy Type Onset Date Status aspirin Aspirin Unknown Drug Allergy Active Non-steroidal anti-inflammatory agent (FN) NSAIDs Unknown Drug Allergy Active REASON FOR VISIT orthotic follow up Encounters Encounter Location Date Provider Diagnosis 1 OF [facility]in [facility]ult[facility] [address] [employer] [address] [place] [address] 09/18/2025 Tien Sultana Prominent metatarsal head of right foot M21.6X1 and 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 Advised on self-adjustment of the pad at home for optimal placement before it is permanently glued. Discussed that if symptoms do not improve, the next step may be a steroid injection. Continue wearing supportive footwear like New Balance and Keen shoes. Follow-up in two weeks to assess response to orthotic modification. Instructed to call if there is a significant flare-up or an obvious issue with the orthotic. Interventions: The metatarsal pad on the right custom orthotic was replaced with a larger one and positioned more distally. The patient stood on the modified orthotic and reported it felt better, without the sensation of a foreign object. Evaluation: Patient reported immediate improvement in comfort with the adjusted orthotic. Will monitor response to treatment over the next two weeks. Additional Notes: Educated on the nature of a neuroma as a pinched nerve between the metatarsal bones. Explained that initial treatment for neuroma and capsulitis is similar (orthotics, reducing swelling). Plan Of Treatment Treatment Notes Assessment Notes Other Plan: Adjust right orthotic by replacing the metatarsal pad with a larger one and placing it more distally to better offload the metatarsal heads. Advised on self-adjustment of the pad at home for optimal placement before it is permanently glued. Discussed that if symptoms do not improve, the next step may be a steroid injection. Continue wearing supportive footwear like New Balance and Keen shoes. Follow-up in two weeks to assess response to orthotic modification. Instructed to call if there is a significant flare-up or an obvious issue with the orthotic. Interventions: The metatarsal pad on the right custom orthotic was replaced with a larger one and positioned more distally. The patient stood on the modified orthotic and reported it felt better, without the sensation of a foreign object. Evaluation: Patient reported immediate improvement in comfort with the adjusted orthotic. Will monitor response to treatment over the next two weeks. Additional Notes: Educated on the nature of a neuroma as a pinched nerve between the metatarsal bones. Explained that initial treatment for neuroma and capsulitis is similar (orthotics, reducing swelling). History and Physical Notes * HPI (History of Present Illness) Category Sub-Category Detail Notes Category Not es Primary reason for visit: 70 y/o male RTO for f/u orthotic fabrication performed on 09/03/2025. Follow-up visit for right foot orthotic discomfort. Reports callus keeps returning. Orthotic pad feels uncomfortable after being on for a while, noticeable early in the day. Has been using orthotics for a couple of weeks. Reports a sensation of something radiating down from the third toe, feeling out of place by the end of the day, with an occasional popping sensation. Reports a feeling like the sock is bunched up under the toes. Prior to orthotics, pain was constant, particularly in the morning and at the end of the day with prolonged standing. Orthotics have provided some improvement, but the original issue persists at the end of the day. Denies numbness in the toes. Footwear: Wears New Balance shoes which have been helpful. Also wears [employer] brand leather boots for ankle support, which have been owned for 5-6 months. JU assisting with visit: HPI/Rooming: Meri Chart Prep Shayla Examination Category Sub-Category Detail Notes Category Not es General Examination Mental status: Cooperative, Oriented to per son, place and time, Mood and affect: normal, Judgement and intellect: normal with appropriate response to questions Objective: Physical examination of the right foot revealed a palpable pop on manipulation of the third intermetatarsal space, suggestive of a positive Karrie's sign. Sensation testing showed diminished sensation on the inside of the third toe and very little feeling in the fifth toe. Sensation was described as dull. Pain was elicited with palpation of the third intermetatarsal space. A pressure point was noted on the plantar aspect of the foot. Left orthotic is reported to be comfortable. Shoes today: Hiking Boots Exam unchanged from prior visit: with no significant changes in appearance or condition of feet Constitutional / Appearance: No acute di stress , Well nourished, Appropriate personal hygiene Progress Notes * Khai RIOSDOB:[birth year] (70 yo M)Acc No.[id number]:09/18/2025 Progress Notes Patient: Khai Mccarty Provider: Orin Sultana DPM :1955 A ge:70 Y S ex:Male Date:09/18/2025 Address:[id number] Pcp:UNKNOWN UNKNOWN Subjective: * Chief Complaints: * O rthotic follow up * HPI: Erna Murphy assisting with visit:: Chart Prep Y matt. HPI/Rooming: Tashia srivastava reason for visit:: 70 y/o male RTO for f/u orthotic fabrication performed on 09/03/2025. Follow-up visit for right foot orthotic discomfort. Reports callus keeps returning. Orthotic pad feels uncomfortable after being on for a while, noticeable early in the day. Has been using orthotics for a couple of weeks. Reports a sensation of something radiating down from the third toe, feeling out of place by the end of the day, with an occasional popping sensation. Reports a feeling like the sock is bunched up under the toes. Prior to orthotics, pain was constant, particularly in the morning and at the end of the day with prolonged standing. Orthotics have provided some improvement, but the original issue persists at the end of the day. Denies numbness in the toes. Footwear: Wears New Balance shoes which have been helpful. Also wears [employer] leather boots for ankle support, which have been owned for 5-6 months. * Medical History: Asthma Gastroesophageal reflux disease (GERD) Cancer Medical History Verified * Surgical History: No Surgical History documented. Surgical History verified. * Hospitalization/Major Diagno stic Procedure: No Hospitalization Documented. Hospitalization Verified. * Allergies: A spirinNSAIDsyesAllergies Verified. Objective: * Examination: G eneral Examination: Constitutional / Appearance: N o acute distress , Well nourished, Appropriate personal hygiene. Mental status: C ooperative, Oriented to person, place and time, Mood and affect: normal, Judgement and intellect: normal with appropriate response to questions. Shoes today: H [employer]king Boots. Exam unchanged from prior visit: w ith no significant changes in appearance or condition of feet . O bjective: Physical examination of the right foot revealed a palpable pop on manipulation of the third intermetatarsal space, suggestive of a positive Karrie's sign. Sensation testing showed diminished sensation on the inside of the third toe and very little feeling in the fifth toe. Sensation was described as dull. Pain was elicited with palpation of the third intermetatarsal space. A pressure point was noted on the plantar aspect of the foot. Left orthotic is reported to be comfortable. Assessment: * Assessment: 1. P rominent metatarsal head of right foot - M21.6X1 (Primary) 2 . 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
--- OUTSIDE RECORDS SUMMARY | 2025-09-30 02:40 | XMS_ITS ---
Author Organization 1 OF Orin virgen [facility] Address [address] [place] [address] Care Team Providers Care Manager Science Name Role Phone UNKNOWN, UNKNOWN Primary Care Provider Unavailab Tien Donahue Unavailable [phone] REASON FOR VISIT orthotic f/u Encounters Encounter Location Date Provider Diagnosis 3 [facility] [address] [place] [address] 09/30/2025 Tien Sultana Plan Of Treatment No Information Progress Notes * GABRIELKhaiDOB:[birth year] (70 yo M)Acc No.[id number]:09/30/2025 Progress Notes Patient: Khai Mccarty Provider: Orin Sultana DPM :1955 A ge:70 Y S ex:Male Date:09/30/2025 Address:[address] , [facility] Pcp:UNKNOWN UNKNOWN Subjective: * Chief Complaints: * O rthotic f/u * Electronic signature of Chava Sultana DPM on 10/19/2025 at 01:03 PM SENIOR RESEARCH PROJECT MANAGER Sign off status: Pending * Provider: Orin Sultana DPM Date: 12/01/2024 Generated for Glen ng/Faxing/eTransmitting on: 12/20/2024 01:03 PM SENIOR RESEARCH PROJECT MANAGER
--- OUTSIDE RECORDS SUMMARY | 2025-10-14 03:30 | XMS_ITS ---
Author Organization 1 THUAN virgen DPM [facility]o Niko Address [address] [place] [address] Care Team Providers Care Dbas Name Role Phone UNKNOWN, UNKNOWN Primary Care Provider Unavailab Tien Donahue Unavailable Allergies Allergen (clinical drug ingredient) Drug/Non Drug Allergy documented on EMR Reaction Allergy Type Onset Date Status aspirin Aspirin Unknown Drug Allergy Active Non-steroidal anti-inflammatory agent (FN) NSAIDs Unknown Drug Allergy Active REASON FOR VISIT orthotic f/u Medications Medication SIG (Take, Route, Frequency, Duration) Notes Start Date End Date Status Omeprazole Active Doxycycline Active Social History Tobacco Use: Social History Observation Description Date Details (start date - stop date) Former Smoker NA - NA Social History Tobacco Use: Social Info Question Answer Notes Tobacco Control (Standard) Tobacco use: Former smoker Encounters Encounter Location Date Provider Diagnosis 3 COL Mckenzie Sultana DPM [address] [place] [address] 10/14/2025 Tien Sultana Prominent metatarsal head of right foot M21.6X1 and 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 Advised feeling of bunched up sock may resolve with more time. f/u PRN Plan Of Treatment Treatment Notes Assessment Notes Other Top cover applied to the RT orthotic. Advised feeling of bunched up sock may resolve with more time. f/u PRN History and Physical Notes * HPI (History of Present Illness) Category Sub-Category Detail Notes Category Not es Primary reason for visit: 70 y/o male RTO for f/u for custom orthotics . At last visit treatment consisted of orthotic was adjusted by replacing the metatarsal pad with a larger one and moving it forward to take pressure off the ball of foot. The provider explained that if symptoms do not improve, a steroid injection may be the next step. Pt states that they working well with resolution of pain but still feels a little feeling of sock being bunched up under his toes but overall much better than before. JU assisting with visit: HPI/Rooming: Lisy Chart Prep Shayla Examination Category Sub-Category Detail Notes Category Not es General Examination Mental status: Cooperative, Oriented to person, place and time, Mood and affect: normal, Judgement and intellect: normal with appropriate response to questions Shoes today: Keen boots Exam unchanged from prior visit: with no significant changes in appearance or condition of feet Constitutional / Appearance: No acute di stress , Well nourished, Appropriate personal hygiene Progress Notes * Khai RIOSDOB:[birth year] (70 yo M)Acc No.[id number]:10/14/2025 Progress Notes Patient: Khai Mccarty Provider: Orin Sultana DPM :1955 A ge:70 Y S ex:Male Date:10/14/2025 Address:[address] [place], [place] [id number] Pcp:UNKNOWN UNKNOWN Subjective: * Chief Complaints: * O rthotic f/u * HPI: Erna Murphy assisting with visit:: Chart Prep Y matt. HPI/Rooming: Erna srivastava reason for visit:: 70 y/o male RTO for f/u for custom orthotics . At last visit treatment consisted of o rthotic was adjusted by replacing the metatarsal pad with a larger one and moving it forward to take pressure off the ball of foot. The provider explained that if symptoms do not improve, a steroid injection may be the next step. Pt states that they working well with resolution of pain but still feels a little feeling of sock being bunched up under his toes but overall much better than before. * Medical History: Asthma Gastroesophageal reflux disease (GERD) Cancer Medical History Verified * Surgical History: No Surgical History documented. Surgical History verified. * Hospitalization/Major Diagno stic Procedure: No Hospitalization Documented. Hospitalization Verified. * Family History: F amily History Verified.. diabetes. * Social History: T obacco Use: T obacco Control (Standard) T obacco use: F ormer smoker S ocial History Verified. * Medications: T akingDoxycycline Omeprazole Medication List reviewed and reconciled with the patientTaking Doxycycline Taking Omeprazole Medication List reviewed and reconciled with the patient * Allergies: A spirinNSAIDsyesAllergies Verified. Objective: * Examination: G eneral Examination: Constitutional / Appearance: N o acute distress , Well nourished, Appropriate personal hygiene. Mental status: C ooperative, Oriented to person, place and time, Mood and affect: normal, Judgement and intellect: normal with appropriate response to questions. Shoes today: K een boots. Exam unchanged from prior visit: w ith no significant changes in appearance or condition of feet . Assessment: * Assessment: 1. P rominent metatarsal head of right foot - M21.6X1 (Primary) 2 . F at pad atrophy of foot - L90.9 Plan: * Treatment: * Preventive Medicine: Screenings: F ALL RISK SCREENING Fall Risk Assessment: O ne fall without injury in the past year Plan of Care: D ocumented * Electronic signature of Chava Sultana DPM on 10/19/2025 at 01:02 PM REFRACTORY BRICKLAYER Sign off status: Pending * Provider: Orin Sultana DPM Date: 12/15/2024 Generated for [place] fall[place]/Anabella/Vale on: 12/20/2024 01:02 PM REFRACTORY BRICKLAYER
[2025-10-19] VITALS (7 sets, daily range): BP systolic 137–148; BP diastolic 74–76; PULSE 63–100; RESP 12–17; TEMP 36.7–36.9; O2SAT 99–100
--- NOTE | ~2025-10-19 | XR_ITS ---
Examination: XR chest 1V portable Clinical History: TIA Comparison: 05/08/2022 Technique: Portable AP Findings: Heart size normal. Lungs clear. No acute bony abnormality. IMPRESSION: 1. No acute cardiopulmonary findings given portable technique. Reviewed, dictated and finalized at location R. TOOTH LAPPING MACHINE OPERATOR
--- NOTE | ~2025-10-19 | CT_ITS ---
CT HEAD CTA NECK, CTA HEAD Clinical History: TIA, slurred speech-now resolved Comparison: None TECHNIQUE: Unenhanced axial images skull base to vertex Coronal, sagittal reformats Helical images thoracic inlet to vertex IV contrast information not listed in PACS Coronal, sagittal reformats. Multi planar MIPS CT images acquired with automatic exposure control for dose reduction DLP: 1203 mGy-cm Findings: CT HEAD White matter changes, typically chronic microvascular ischemic disease Sulci, ventricles: Unremarkable. No intracerebral hemorrhage. No evidence acute territorial infarct. No mass effect, midline shift. Bony calvarium intact. Visualized paranasal sinuses: Clear. Mastoid air cells: Clear. No abnormal foci of contrast enhancement. Patent dural venous sinuses. CTA NECK NASCET Criteria utilized Aortic arch: No aneurysm or dissection. Great vessel origins: No stenosis. CCAs: No dissection. No stenosis. Cervical ICAs: No dissection. No stenosis. Vertebral Arteries: Patent. Left side dominant. Lung Apices: Clear. Thyroid: Unremarkable. Nodes: No enlarged nodes. Bones: No acute bony abnormality. CTA HEAD: Aneurysms: None. Intracranial ICAs: Patent, unremarkable. ACAs and their distal branches: Patent, unremarkable. A-Comm: Identified. Patent, unremarkable. MCAs and their distal branches: Patent, unremarkable. Basilar artery: Patent, unremarkable. senior compensation consultant and their distal branches: Patent, unremarkable. P-Comms: Identified. IMPRESSION: CT HEAD: 1. No acute intracranial findings. CTA NECK: 1. No ICA stenosis or other acute arterial abnormality. CTA HEAD: 1. No large vessel arterial occlusive disease or other acute findings. 2. No aneurysms. 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 No acute intracranial findings. CTA NECK: 1. No ICA stenosis or other acute arterial abnormality. CTA HEAD: 1. No large vessel arterial occlusive disease or other acute findings. 2. No aneurysms.
--- NOTE | 2025-10-19 11:16 | ECG_ITS ---
Test Date: 2025-10-19 11:31:18 Measurements Intervals [place] Rate: P: 0 NM: 0 QRS: 0 QRSD: 0 T: 0 QT: 0 QTc: 0 Interpretive Statements SINUS RHYTHM WITH ATRIAL PREMATURE COMPLEX INCOMPLETE RIGHT BUNDLE BRANCH BLOCK MINIMAL Q WAVES- HIGH LATERAL LEADS BASELINE ARTIFACT- AVR, AVL, AVF, V3 BORDERLINE ECG No previous ECG available for comparison Electronically Signed On 10-19-2025 12:08:12 QC MANAGER by Shaquille Myles D.O.
--- NOTE | 2025-10-19 11:18 | ED_ITS ---
HPI - Neuro Symptoms/Deficit General Chief Complaint: Suspected CVA Stated Complaint: episode of slurred speech, L. hand numbness Time Seen by Provider: 10/19/25 11:15 History of Present Illness HPI Narrative: 70-year-old male with no prior history of CVA presents to the emergency department for evaluation for slurred speech and left handed weakness that started approximately 11:00 a.m.. Patient states symptoms started approximately 15 minutes prior to arrival. At time of initial evaluation patient feels that he is back to his baseline. Patient states symptoms started while he was on a face time conversation with his mother. Patient notes slurring of his speech and noticed some left-sided hand heaviness. Patient states his also noticed the slurred speech. At time of initial evaluation approximately size 11:15 patient was back to his baseline. Patient states he is being evaluated for prostate cancer. Patient denies any prior history of [place], CVA, hypertension, diabetes, high cholesterol. Patient reports he does have an allergy to aspirin. Related Data Home Medications ?Medication ?Instructions ?Recorded ?Confirmed ?Last Taken ?Type fluticasone propionate 50 1 spray intranasal DAILY PRN 04/10/24 04/13/25 Unknown History mcg/actuation nasal allergy symptoms spray,suspension (Flonase Allergy Relief) sildenafil (pulm.hypertension) 20 100 mg PO ONCE PRN 0 04/13/25 04/13/25 Unknown History mg tablet Allergies Allergy/AdvReac Type Severity Reaction Status Date / Time aspirin Allergy Severe asthma Verified 10/19/25 11:29 NSAIDS (Non-Steroidal Allergy Intermediate INDUCED Verified 10/19/25 11:29 Anti-Inflamma ASTHMA Review of Systems 2 Review of Systems: All systems reviewed & are unremarkable except as noted in HPI and below PMFSH Past Medical History Medical History (Updated 10/19/25 @ 12:47 by Chandana Tineo MD) Hx of malignant neoplasm of prostate Diagnosed 08/2024 Hx of basal cell carcinoma Screening for metabolic disorder Screening, lipid Rhinitis, chronic Sleep apnea in adult Family History Family History Sibling Hypertension Liver cancer Mother Patient's mother is in good health Father Family history of heart disease in male family member before age 55, Onset Age: 82 Patient's father is Social History Social History Smoking packs per day: 3 Smoking cigarettes per day: 60.0 Years smoked: 5 Smoking pack-years: 15.00 Smoking status: Former smoker Tobacco type: cigarettes Second hand tobacco smoke exposure: No Smoking end date: 10/29/86 Alcohol intake: former Substance use: current Substance use type: marijuana Lack of Transportation: No Lack of Food: Never True Current Housing: I Have Housing Concerned About Future Housing: No Difficulty Paying Gas/Electric Bills: No Difficulty Paying for Meds: No Currently Unemployed: No Education: Bachelor's Degree Difficulty w/ Childcare or Family Care: No Living arrangements: with family Exam 2 Narrative: APPEARANCE: Well appearing, no pain, no distress, well-nourished. HEAD: normocephalic, atraumatic. EYES: PERRLA/EOMI, conjunctivae clear. NOSE: Normal no drainage EARS:TMS clear with good light reflex. THROAT: Pharynx clear, no exudate. NECK: Supple. No adenopathy, no masses. RESPIRATORY: Airway patent, respirations nonlabored. Clear to auscultation bilaterally, no rales, rhonchi, wheezing. CARDIOVASCULAR: Regular rate and rhythm without murmurs rubs or gallops. ABDOMINAL: Soft, nontender, nondistended, normal bowel sounds MUSCULOSKELETAL: Moves all extremities. Strength/ROM intact, No edema, No calf tenderness. NEURO: Alert. Cranial nerves II through XII intact. Good gait. Good coordination SKIN: Warm, dry. Normal Color PSYCHIATRIC: Normal affect/mood. Course Vital Signs Vital signs: Vital Signs Temperature 98.4 F 10/19/25 11:30 Pulse Rate 68 10/19/25 11:30 Respiratory Rate 15 10/19/25 11:30 Blood Pressure 137/74 10/19/25 11:30 Pulse Oximetry 99 10/19/25 11:30 Oxygen Delivery Room Air 10/19/25 11:30 Temperature 98.1 F 10/19/25 12:57 Pulse Rate 66 10/19/25 12:57 Respiratory Rate 15 10/19/25 12:57 Blood Pressure 148/76 H 10/19/25 12:57 Pulse Oximetry 99 10/19/25 12:57 Oxygen Delivery Room Air 10/19/25 11:40 [facility] MDM Narrative Medical decision making narrative: Patient's initial symptoms started approximately 10:50 And resolved by time he was evaluated initially at approximate Garg 15 at 12:15 p.m. I was called into the room to re-evaluate the patient and he had worsening speech and does have a new left facial droop. patient has no prior history of CVA. Patient is currently afebrile and a leukocytosis as stable hemoglobin INR is 1.0. Negative troponin. Head CT was negative. CTA head neck was negative. Case was discussed with Neurology at [facility] and patient was accepted as a time critical to the ED. ED Physician was Dr Mueller. patient was treated with TNK at 12:39 a.m.. On re-evaluation prior to transfer patient's symptoms had resolved again. Differential Diagnosis Differential Diagnosis: TIA, CVA, subdural hematoma, subarachnoid hemorrhage, seizure, Chandana's paralysis Lab Data MDM Lab Attestation statement: I personally reviewed the patient's lab results. 10/19/25 11:20 10/19/25 11:20 Labs: Lab Results 10/19/25 10/19/25 10/19/25 Range/Units 11:10 11:20 11:24 WBC 6.5 (4.5-10.0) K/mm3 RBC 5.20 (4.6-6.20) M/mm3 Hgb 15.4 (14.0-18.0) g/dL Hct 44.8 (42.0-52.0) % MCV 86.2 (80-100) fl MCH 29.6 (26-34) pg MCHC 34.4 (32-36) g/dl RDW 13.1 (11.5-14.5) % Plt Count 211 (150-375) k/mm3 MPV 9.7 (7.4-10.4) fl Immature Gran % (Auto) 0.2 (0-0.5) % Neut % (Auto) 56.8 (45.5-73.1) % Lymph % (Auto) 30.4 (18.3-44.2) % [place] % (Auto) 9.9 H (2.6-8.5) % Eos % (Auto) 2.1 (0-4.4) % Baso % (Auto) 0.6 (0.2-1.2) % Lymph # (Auto) 1.99 (0.9-3.2) K/mm3 [place] # (Auto) 0.7 H (0.1-0.6) K/mm3 Eos # (Auto) 0.1 (0-0.3) K/mm3 Baso # (Auto) 0.0 (0.0-0.1) K/mm3 Abs Immat Gran (auto) 0.01 (0.00-0.031) K/mm3 Absolute Neuts (auto) 3.7 (1.3-6.7) K/mm3 Absolute Nucleated RBC 0.000 (0.0-0.012) K/mm3 Nucleated RBC % 0.0 (0.0-0.2) % PT 12.8 (11.1-14.7) Seconds INR 1.0 APTT 26.2 (22.3-36.8) Seconds Sodium 137 (137-145) mmol/L Potassium 4.5 (3.4-5.0) mmol/L Chloride 107 (98-107) mmol/L Carbon Dioxide 23 (22-30) mmol/L Anion Gap 7 (4-12) mmol/L BUN 26 H (9-20) mg/dL Creatinine 0.98 (0.7-1.3) mg/dL Estim Creat Clear Calc 67 ml/min Estimated GFR > 60 (59 - ) Glucose 105 (65-110) mg/dL POC Capillary Glucose 102 (65-105) mg/dl Lactic Acid 1.4 (0.7-2.0) mmol/L Calcium 9.3 (8.4-10.2) mg/dL Total Bilirubin 0.6 (0.2-1.3) mg/dL AST 44 (17-59) U/L ALT 51 H (6-50) U/L Alkaline Phosphatase 52 (38-126) U/L Troponin I < 0.012 (0.000-0.034) ng/mL Total Protein 7.3 (6.3-8.2) g/dL Albumin 4.4 (3.5-5.1) g/dL Imaging Data Radiologist's impression: ITS Impressions Head CT 10/19/25 11:31 IMPRESSION: CT HEAD: 1. No acute intracranial findings. CTA NECK: 1. No ICA stenosis or other acute arterial abnormality. CTA HEAD: 1. No large vessel arterial occlusive disease or other acute findings. 2. No aneurysms. Head/Neck CTA 10/19/25 11:31 IMPRESSION: CT HEAD: 1. No acute intracranial findings. CTA NECK: 1. No ICA stenosis or other acute arterial abnormality. CTA HEAD: 1. No large vessel arterial occlusive disease or other acute findings. 2. No aneurysms. Chest X-Ray 10/19/25 11:55 IMPRESSION: 1. No acute cardiopulmonary findings given portable technique. Critical Care Time Critical Care Time Critical Care Time: Yes Time Type: Intermittent Initial evaluation, discuss w/ involved parties, attempting to gather old records: 10 minutes Documenting medical record: 10 minutes Review of results (EKG's, labs, imaging): 5 minutes Serial repeat bedside evaluation: 15 minutes Discussing case with multiple memebers of the care team and consultants: 10 minutes Total Critical Care Time: 50 Discharge Plan Discharge Clinical Impression: Acute CVA (cerebrovascular accident) Patient Disposition: Acute Care Hospital Condition: Critical Patient Language: Yoruba Prescriptions: No Action fluticasone propionate [Flonase Allergy Relief] 50 mcg/actuation spray,suspension 1 spray intranasal DAILY PRN (Reason: allergy symptoms) Rx Instructions: administer into each nostril sildenafil (pulm.hypertension) 20 mg tablet 100 mg PO ONCE PRN omeprazole 40 mg capsule,delayed release(DR/EC) 40 mg PO DAILY Qty: 90 1RF Follow-up/Referrals: PHYSICIAN NOT ON STAFF,NONSTAFF [Primary Care Provider] Quality Stroke Date of last known normal: 10/19/25 Time of last known normal: 12:23 Stroke Scale Stroke Scale 1: Stroke scale date:: 10/19/25 Stroke scale time:: 12:23 1a Level of consciousness: alert-0 1b Level of consciousness questions: answers both correctly-0 1c Level of consciousness commands: obeys both correctly-0 2 Best gaze: normal-0 3 Visual: no visual loss-0 4 Facial palsy: minor paralysis-1 5a Motor: left arm: drift-1 5b Motor: right arm: no drift-0 6a Motor: left leg: drift-1 6b Motor: right leg: no drift-0 7 Limb ataxia: absent-0 8 Sensory: normal-0 9 Best language: no aphasia-0 10 Dysarthria: slurs some words-1 11 Extinction and inattention: no abnormality-0 Level:: 4
[2025-10-19 11:26] LABS: Hematocrit 44.8 % (42.0-52.0); Hemoglobin 15.4 g/dL (14.0-18.0); Immature Granulocyte Percent A 0.2 % (0-0.5); Lymphocytes Absolute Auto 1.99 K/mm3 (0.9-3.2); Mean Corpuscular HGB Conc 34.4 g/dl (32-36); Mean Corpuscular Hemoglobin 29.6 pg (26-34); Mean Corpuscular Volume 86.2 fl (80-100); Nucleated Red Blood Cells Absolute Auto 0.000 K/mm3 (0.0-0.012); Nucleated Red Blood Cells Perc 0.0 % (0.0-0.2); Platelet Count Result 211 k/mm3 (150-375); Red Blood Count 5.20 M/mm3 (4.6-6.20); White Blood Count 6.5 K/mm3 (4.5-10.0)
[2025-10-19 11:37] LABS: INR 1.0; Prothrombin Time 12.8 Seconds (11.1-14.7)
[2025-10-19 11:38] LABS: Partial Thromboplastin Time 26.2 Seconds (22.3-36.8)
[2025-10-19 11:39] LABS: Alanine Aminotransferase 51 U/L (6-50); Albumin Level 4.4 g/dL (3.5-5.1); Alkaline Phosphatase 52 U/L (38-126); Anion Gap 7 mmol/L (4-12); Aspartate Amino Transferase 44 U/L (17-59); Bilirubin,Total 0.6 mg/dL (0.2-1.3); Blood Urea Nitrogen 26 mg/dL (9-20); Calcium 9.3 mg/dL (8.4-10.2); Carbon Dioxide 23 mmol/L (22-30); Chloride 107 mmol/L (98-107); Estimated CRCL calculation 67 ml/min; Estimated Glomerular Filt Rate > 60; Glucose 105 mg/dL (65-110); Potassium 4.5 mmol/L (3.4-5.0); Sodium 137 mmol/L (137-145); Total Protein 7.3 g/dL (6.3-8.2)
[2025-10-19 11:49] LABS: Troponin I < 0.012 ng/mL (0.000-0.034)
--- NOTE | 2025-10-19 12:21 | PC.NURSE ---
pt now c/o tingling to his face, slurring words and slight left sided facial droop. Pt describes a tense feeling to his head EDP made aware
[2025-10-19] MEDS: TENECTEPLASE 50 MG/10 ML VIAL 23.4 MG IV PUSH (12:38)
--- OUTSIDE RECORDS SUMMARY | 2025-10-19 13:03 | XMS_ITS | Patient Health Record ---
Author Organization 1 OF Orin [facility]gen [employer] Address [address] [place] [address] Care Team Providers Care Controller Operations And Hr Manager Name Role Phone UNKNOWN, UNKNOWN Primary Care Provider Unavailab Tien Donahue Unavailable Gloria Rowe Unavailable [phone] Allergies Allergen (clinical drug ingredient) Drug/Non Drug Allergy documented on EMR Reaction Allergy Type Onset Date Status aspirin Aspirin Unknown Drug Allergy Active Non-steroidal anti-inflammatory agent (FN) NSAIDs Unknown Drug Allergy Active Reason For Referral No Information Medications Medication SIG (Take, Route, Frequency, Duration) [...] Active confirmed Vital Signs Height 70 in 08/25/2025 Weight 195 lbs 08/25/2025 BMI 27.98 kg/m2 08/25/2025 Encounters Encounter Location Date Provider Diagnosis 1 OF [facility] [address] [place] [address] 07/16/2025 Tien Sultana Prominent metatarsal head of right foot M21.6X1 and Fat pad atrophy of foot L90.[address] [facility] [address] [facility] [address] [place] [address] 09/03/2025 Tien Sultana [address] 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 Recommended that he perform stretching exercises to take pressure off the ball of the foot. Some hyperkeratotic tissue was trimmed for him today. I discussed the importance of wearing good supportive shoes and avoiding walking around barefoot. A metatarsal pad was added to his shoe today. He can remove this, if it feels uncomfortable. He would like to proceed with custom orthotic fabrication and can follow-up with Dr. Sultana after this. 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 - Advised to stay away from [employer] as they sell expensive, [id number] inserts. - Recommended wearing hiking boots when on rough terrain. - Provided a coupon for [employer] shoe store. - Follow-up in one month [...] understanding of the plan. Scheduled follow-up appointment. 09/18/2025 Other Plan: Adjust right orthotic by [...] and capsulitis is similar (orthotics, reducing swelling). 10/14/2025 Other Top cover appli ed to the RT orthotic. Advised feeling of bunched up sock may resolve with more time. f/u PRN Plan Of Treatment No Information Insurance Providers Payer Name Payer Address Payer Phone Subscriber Number Group Number Insured Name Patient Relationship to Insured Coverage Start Date Coverage End Date Medicare [address] [place] [id number] Khai Rios Self - patient is the insured Medical (General) History Medical History History ICD Code Asthma Gastroesophageal reflux disease (GERD) Cancer
--- OUTSIDE RECORDS SUMMARY | 2025-10-19 13:03 | XMS_ITS | Clinical Summary ---
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
--- OUTSIDE RECORDS SUMMARY | 2025-10-19 13:03 | XMS_ITS | Clinical Summary ---
Author Organization [facility] [address] [place] [address] Care Team Providers Care Drop Board Man Name Role Phone Collins Escobedo MD Primary Care Provider [phone] Allergies Active Allergy Reactions Criticality Noted Date Comments Aspirin Wheezing Medium 06/26/2022 Nsaids (Non-Steroidal Anti-I nflammatory Drug) Wheezing Medium 06/26/2022 Medications fluticasone propionate (FLONASE) 50 mcg/actuation nasal spray Administer 1 spray into each nostril daily as needed for rhinitis or allergies Active omeprazole (PriLOSEC) 20 mg capsuleIndicati ons:Gastroesoph ageal reflux disease without esophagitis TAKE 1 CAPSULE BY MOUTH EVERY DAY 90 capsule 5 Active doxycycline 100 mg tabletIndicatio ns:Chronic frontal sinusitis Take 1 tablet (100 mg total) by mouth 2 (two) times a day for 21 days 42 tablet 5 10/28/20 25 Active fluticasone propionate (FLONASE) 50 mcg/actuation nasal sprayIndication s:Chronic frontal sinusitis Administer 2 sprays into each nostril daily 1 each 11 5 11/06/19 26 Active ondansetron (ZOFRAN) 4 mg tabletIndicatio ns:Nausea and vomiting, unspecified vomiting type Take 1 tablet (4 mg) total 30 minutes before starting colonoscopy prep. Use the 2nd tablet as needed for nausea and vomiting. 2 tablet 5 Active polyethylene glycol (GoLYTELY) 236-22.74-6.74 -5.86 gram solutionIndicat ions:Screening for colon cancer Take 4,000 mL by mouth once for 1 dose 4000 mL 5 10/16/20 25 Active Problems Problem Noted Date Diagnosed Date Screening for colon cancer 10/16/2025 Chronic frontal sinusitis 10/07/2025 Assessment & Plan (10/07/2025 11:31 AM INSURANCE INVESTIGATOR): Flonase 2 sprays into each nostril while looking down over the sink, do not sniff in or blow nose after use for at least 30 minutes daily Doxycycline twice daily with a meal without dairy, wear sunscreen when on this antibiotic CT sinus right before follow up in the Office Left neck fullness is thyroid cartilage which is normal 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 Feels that something is folding over every time that he swallows. Reports that he has had these complaints for over a year. Has been on omeprazole and has minimal complaints of heartburn. Does admit that he was a previous smoker. Currently has a thyroid ultrasound ordered however this has yet to be completed. Was seen by ENT recently as he does have post nasal drainage. -Discussed possible etiologies including but not limited to silent GERD, dysmotility, postnasal drip, thyroid - EGD scheduled at this time to -[facility] to evaluate possible dysmotility - US was ordered by PCP, awaiting results - Recommended for him to take his daily omeprazole in the a.m. as opposed to at nighttime to see if this is more therapeutic. -Discussed possible trial of daily antihistamine to help minimize complaints of postnasal drainage Orders: Case Request Operating Room: ESOPHAGOGASTRODUODENOSCOPY Gastroesophageal reflux disease without esophagi tis 07/06/2025 Assessment & Plan (07/06/2025 9:05 AM CDT): * diagnosed by ENT 1 year ago Patient is concerned about long-term use of medication We will await on GI recommendations, possible need for endoscopy Orders: omeprazole (PriLOSEC) 20 mg capsule; Take 1 capsule (20 mg total) by mouth daily Ambulatory referral to Gastroenterology; Future Prostate cancer 07/06/2025 Assessment & Plan (07/06/2025 9:03 AM CDT): Diagnosed after postop PSA screen over a year ago Follows up with Urology, currently on watchful management Encounters Date Type Department Care Team Description 5 Orders Only [facility] at [place] [address] [facility] [address] [place] [address] Mina Burnham MD Screening for colon cancer (Primary Dx); Nausea and vomiting, unspecified vomiting type 5 7:55 AM INSURANCE INVESTIGATOR - 5 11:59 PM INSURANCE INVESTIGATOR Hospital Encounter [facility] [address] [place] [address] History of tobacco abuse Discharge Disposition: Discharge to home or self care 5 Results Follow-Up [address] [place] [address] Collins Escobedo MD Abdominal Aortic Aneurysm Screening 5 11:15 AM INSURANCE INVESTIGATOR Office Visit [facility] [address] [facility] [address] [place] [address] Lidia Sofia, Chronic frontal sinusitis (Primary Dx); Thyroglossal duct cyst 5 8:00 AM INSURANCE INVESTIGATOR Office Visit [address] [place] [address] Collins Escobedo MD Medicare annual wellness visit, subsequent (Primary Dx); Colon cancer screening; History of tobacco abuse 5 Results Follow-Up [address] [place] [address] Neck Soft Tissue W Contrast 5 11:00 AM CDT - 5 11:59 PM CDT Hospital Encounter [facility] [address] [place] [address] Mass of left submandibular region Discharge Disposition: Discharge to home or self care 5 Results Follow-Up [facility] at [place] [address] [facility] [address] [place] [address] Mina Burnham MD Surgical pathology 5 3:50 PM CDT Lab [facility] [address] [place] [address] Mass of left submandibular region 5 Results Follow-Up [facility] [address] [facility] [address] [place] [address] Collins Escobedo MD US Soft Tissue Neck 5 4:20 PM CDT - 5 11:59 PM CDT Hospital Encounter [facility] [address] [place] [address] Localized swelling, mass and lump, neck Discharge Disposition: Discharge to home or self care 5 2:30 PM CDT Anesthesia Event [facility] [address] [place] [address] Luana Muhammad MD 5 2:30 PM CDT - 5 3:00 PM CDT Surgery [facility] [address] [place] [address] Mina Burnham MD ESOPHAGOGASTRODUODENOSCOPY BIOPSY 5 1:17 PM CDT - 5 3:34 PM CDT Hospital Encounter [facility] [address] [place] [address] Mina Burnham MD Globus sensation Discharge Disposition: Discharge to home or self care 5 Orders Only [facility] Health Information Management [address] [place] [address] Collins Escobedo MD 5 8:00 AM CDT Office Visit [facility] Gastroenterology at [address] [place] [address] Mandie Reddy, JADE Globus sensation (Primary Dx) from Last 3 Months Immunizations Immunization Administration Dates Next Due Hep A / Hep B 08/22/2025 Influenza, Quad, Adjuvantate d, Intramuscular 07/27/2021 Influenza, Quadrivalent, Spl it, Preservative Free, Intramuscular 06/28/2020,08/04/2019,06/13/2018,11/05 Influenza, Trivalent, Adjuva nted, Intramuscular 08/07/2023,07/27/2022 Influenza, Unspecified 07/21/2025,07/29/2024 Pneumococcal Conjugate Pcv20 12/25/2022 RSV Vaccine, Pref, Recombina nt, Subunit, Adjuvanted, PF, IM (Arexvy) 11/02/2023 ZOSTER Recombinant 08/15/2018,05/06/2018 Medical History Medical History Date Comments Sinusitis Allergic rhinitis Asthma Arthritis Prostate cancer (HCC) 12/27/2024 Family History Medical History Relation Name Comments Cancer Father Cancer Sister 1 Relation Name Status Comments Brother 1 Alive Brother 2 Alive Brother 3 Alive Brother 4 Alive Brother 5 Alive Father (Age 83) Mother Alive Sister 1 Sister 2 Alive Sister 3 Alive Sister 4 Alive Social History Tobacco Use Types Packs/Day Years Used Date Smoking Tobacco: Former Cigarettes 1.5 4 1 974 - 1977 Smokeless Tobacco: Never Tobacco Cessation:Counseling Given: Not Answered Alcohol Use Standard Drinks/Week Comments Yes 0 (1 standard drink = 0.6 oz pur e alcohol) PHQ-2 Answer Date Recorded PHQ-2 Total Score (If total score is 3 or more points, staff should administer the PHQ-9) 0 10/05/2025 PHQ-9 Answer Date Recorded PHQ-9 Total Score 2 10/05/2025 AUDIT-C Answer Date Recorded Q1: How often do you have a drink containing alc ohol? Monthly or less 08/04/2025 Q2: How many drinks containi ng alcohol do you have on a typical day when you are drinking? 1 or 2 08/04/2025 Q3: How often do you have si x or more drinks on one occasion? Never 08/04/2025 Personal Safety Answer Date Recorded Have you ever been in or are you currently in a harmful physical or emotional relationship or is someone making you feel afraid or unsafe? Denies 08/04/2025 Sex and Gender Information Value Date Recorded Sex Assigned at Not on file Legal Sex Male 12:44 AM INSURANCE INVESTIGATOR Gender Identity Not on file Sexual Orientation Not on file Last Filed Vital Signs Vital Sign Reading Time Taken Comments Blood Pressure 130/74 10/05/2025 8:09 AM INSURANCE INVESTIGATOR Pulse 68 10/05/2025 8:09 AM INSURANCE INVESTIGATOR Temperature 36.6 C (97.9 F) 08/04/2025 2:48 PM CDT Respiratory Rate 18 10/05/2025 8:09 AM INSURANCE INVESTIGATOR Oxygen Saturation 96% 10/05/2025 8:09 AM INSURANCE INVESTIGATOR Inhaled Oxygen Concentration - - Weight 92.3 kg (203 lb 6.4 oz) 10/05/2025 8:09 A M INSURANCE INVESTIGATOR Height 180.3 cm (5' 11) 10/05/2025 8:09 AM INSURANCE INVESTIGATOR Body Mass Index 28.37 10/05/2025 8:09 AM INSURANCE INVESTIGATOR Plan of Treatment Upcoming Encounters Date Type Department Care Team (Late st Contact Info) Description 11/16/2025 7:15 AM INSURANCE INVESTIGATOR Hospital Encounter [facility] [address] [place] [address] Mina Burnham MD [address] [place] [address] [address] [place] [address] 11/16/2025 7:15 AM INSURANCE INVESTIGATOR - 11/16/2025 7:30 AM INSURANCE INVESTIGATOR Surgery [facility] [address] [place] [address] MD [facility] [address] [place] [address] COLONOSCOPY Scheduled Procedures Name Priority Associated Diagnoses Date/Ti me COLONOSCOPY Screening for colon cancer 11/16/2025 7:15 AM INSURANCE INVESTIGATOR Health Maintenance Due Date Last Done Comments Colon Cancer Screening-Colonoscopy 1955 Hepatitis C Screening 1955 Covid-19 Vaccine (5 - 2024-2 6 season) 2025 03/14/2022, 08/15/2021, 12/14/2020, Additional history exists Depression Screening 10/05/2026 10/05/2025, 10/05/2025, 07/06/2025, Additional history exists Fall Risk Assessment 10/05/2026 10/05/2025, 08/04/20 25 Well Visit 65+ 10/05/2026 10/05/2025 DTaP/Tdap/Td Vaccine (3 - Td or Tdap) 04/05/2033 04/05/2023, 10/31/2016 Zoster Vaccine Completed 08/15/2018, 05/06/2018 Pneumococcal vaccine 65+ Completed 12/25/2022 Influenza Vaccine Completed 07/21/2025, , 08/07/2023, Additional history exists Hepatitis B Screening Completed 08/22/2025 Abdominal Aortic Aneurysm (A AA) Screen Completed 10/09/2025 Prostate Cancer Screening-PSA Discontinued Procedures Procedure Name Priority Date/Time Associated Diagnosis Comments US ABDOMINAL AORTIC ANEURYSM SCREENING Schedule Routine, Read Routine (OP Routine) 10/09/2025 8:18 AM INSURANCE INVESTIGATOR History of tobacco abuse CT SOFT TISSUE NECK W CONTRAST Schedule Routine, Read Routine (OP Routine) 08/16/2025 11:50 AM CDT Mass of left submandibular region EGFR Routine 08/10/2025 4:00 PM CDT Mass of left submandibular region BASIC METABOLIC PANEL Routine 08/10/2025 4:00 PM CDT Mass of left submandibular region US SOFT TISSUE HEAD NECK Schedule Routine, Read Routine (OP Routine) 08/05/2025 4:42 PM CDT Localized swelling, mass and lump, neck SURGICAL PATHOLOGY Routine 08/04/2025 2:37 PM CDT Globus sensation EGD 08/04/2025 2:32 PM CDT ESOPHAGOGASTRODUODENOSCOPY BIOPSY 08/04/2025 2:31 PM CDT Globus sensation GI - RESULT 08/04/2025 from Last 3 Months Results * US Abdominal Aortic Aneurysm Screening (10/09/2025 8:18 AM INSURANCE INVESTIGATOR) Anatomical Region Laterality Modality Abdomen Ultrasound 10/09/2025 8:58 AM INSURANCE INVESTIGATOR Impressions 10/09/2025 8:58 AM INSURANCE INVESTIGATOR No abdominal aortic aneurysm.? REFERENCE: Please see below follow up recommendations for abdominal aortic aneurysm surveillance per Society for Vascular Surgery Guidelines: ? < 2.6 cm No follow up or future screenings necessary 2.6?2.9 cm Recommended ultrasound follow up every 5 years 3.0-3.4 cm Recommended ultrasound follow up every 3 years 3.5-3.9 cm Recommended ultrasound follow up every 12 months 4.0-4.9 cm Recommended ultrasound follow up every 12 months, vascular surgery consult 5.0-5.4 cm Recommended ultrasound follow up every 6 months, vascular surgery consult >= 5.5 cm Referral to vascular surgeon ? Based upon Society for Vascular Surgery Guidelines: J Vasc Surgery 2008 50: s2-s49; updated Oct 2017 J Vasc Surgery 67:2-77 Electronically signed by: Vihs Michael M.D. Narrative 10/09/2025 8:58 AM INSURANCE INVESTIGATOR EXAM DESCRIPTION: US ABDOMINAL AORTIC ANEURYSM SCREENING REASON FOR STUDY: Abdominal aortic aneurysm (AAA) screening TECHNIQUE: Grayscale images acquired of the aorta and stored on PACS. Selected color Doppler and spectral images recorded. COMPARISON: None. FINDINGS: AORTIC CALIBER MAXIMAL PROXIMAL: 2.1 x 2.1 cm. MID: 2.1 x 1.9 cm. DISTAL: 1.7 x 1.7 cm. ? ILIAC DIAMETER RIGHT: 1.1 x 1.1 cm. LEFT: 1.0 x 1.0 cm. OTHER: [No other significant finding.] Procedure Note Vish Michael MD - 10/09/2025 EXAM DESCRIPTION: US ABDOMINAL AORTIC ANEURYSM SCREENING REASON FOR STUDY: Abdominal aortic aneurysm (AAA) screening TECHNIQUE: Grayscale images acquired of the aorta and stored on PACS. Selected color Doppler and spectral images recorded. COMPARISON: None. FINDINGS: AORTIC CALIBER MAXIMAL PROXIMAL: 2.1 x 2.1 cm. MID: 2.1 x 1.9 cm. DISTAL: 1.7 x 1.7 cm. ? ILIAC DIAMETER RIGHT: 1.1 x 1.1 cm. LEFT: 1.0 x 1.0 cm. OTHER: [No other significant finding.] IMPRESSION: No abdominal aortic aneurysm.? REFERENCE: Please see below follow up recommendations for abdominal aortic aneurysm surveillance per Society for Vascular Surgery Guidelines: ? < 2.6 cm No follow up or future screenings necessary 2.6?2.9 cm Recommended ultrasound follow up every 5 years 3.0-3.4 cm Recommended ultrasound follow up every 3 years 3.5-3.9 cm Recommended ultrasound follow up every 12 months 4.0-4.9 cm Recommended ultrasound follow up every 12 months, vascular surgery consult 5.0-5.4 cm Recommended ultrasound follow up every 6 months, vascular surgery consult >= 5.5 cm Referral to vascular surgeon ? Based upon Society for Vascular Surgery Guidelines: J Vasc Surgery 2008 50: s2-s49; updated Oct 2017 J Vasc Surgery 67:2-77 Electronically signed by: Vish Michael M.D. Collins Escobedo MD IM US PROCEDURES Final Result * CT Neck Soft Tissue W Contrast (08/16/2025 11:50 AM CDT) Anatomical Region Laterality Modality Head and Neck N/A Computed Tomogra phy 08/17/2025 2:03 PM CDT Narrative 08/17/2025 2:23 PM CDT EXAM DESCRIPTION: CT SOFT TISSUE NECK W CONTRAST REASON FOR STUDY: submandibular nodule Feels a lump on left side of neck- BB placed Small lump (Marked) left anterior neck x 1 year. Hx of prostate CA. TECHNIQUE: Post IV contrast scanning from skull base through lung apices. Reconstructed MPR images reviewed. All images stored on PACS. Automated exposure control was used as a dose optimization technique for this examination. CONTRAST TYPE/DOSE: 100mL of IOVERSOL 350 MG IODINE/ML INTRAVENOUS SYRINGE injected via intravenous COMPARISON: Soft tissue ultrasound comparison from 08/09/2025. FINDINGS: SOFT TISSUE: A marker was placed over the area of palpable concern. The marker overlies the left thyroid cartilage. Extending along the inferior margin of the hyoid bone to the upper margin of the thyroid midline cartilage there is a thick walled cystic nodule measuring 2.2 by 2.5 by 1.7 cm. The lesion is not completely cystic and there are several soft tissue density components and septations however no calcifications are identified. There is no infiltration of paralaryngeal soft tissues. Given location and appearance, this is likely a thyroglossal duct cyst. No other abnormalities identified in the area the BB marker. ORAL CAVITY/FLOOR OF MOUTH, PHARYNX, LARYNX, HYPOPHARYNX: Normal appearance of nasopharynx. Yue pharyngeal mucosa appears normal. [place] tonsils and adenoid tissue appears normal. There is no abnormality of the floor of mouth. Base of tongue appears normal. Mild artifact from dental faith. Supraglottic larynx is unremarkable. Aryepiglottic folds and epiglottis are normal. The laryngeal structures are normal. LYMPHADENOPATHY: There are a few small lymph nodes within lateral cervical chains bilaterally. There are no abnormal appearing cervical lymph nodes. There are no abnormally enhancing cervical lymph nodes. MAJOR SALIVARY GLANDS: Normal appearance of the submandibular glands and parotid glands. No focal lesion. There is no abnormality in the submandibular space. THYROID: Normal size. No nodules greater than 1 cm. VASCULATURE: No apparent critical stenosis or occlusion. INTRACRANIAL/SKULL BASE/INCLUDED ORBITS: Limited intracranial evaluation. No abnormal findings. PARANASAL SINUSES: There is significant osseous thickening of the right maxillary sinus with a minimal amount of mucus and fluid in keeping with chronic sinusitis. There is complete opacification of the left frontal sinus likely representing frontoethmoidal recess stenosis. No bone expansion or destruction. No findings to indicate mucocele or acute frontal sinusitis.. CERVICAL SPINE: Mild cervical spondylosis with posterior disc osteophytic spurring most evident at C5-6. Some degree of [id number] spinal stenosis likely.. LUNG APICES: Clear. OTHER: No other significant finding. IMPRESSION: 1. Thick-walled cystic nodule in the midline extending from the inferior margin of the hyoid bone to the upper margin of the thyroid cartilage. Given location and appearance, this is likely a thyroglossal duct cyst.ENT consult is suggested. If additional imaging is clinically indicated, consider MRI soft tissue neck with contrast protocol by radiologist. 2. Findings of chronic right maxillary sinusitis. Completely opacify left frontal sinus likely with obstruction of frontoethmoidal recess. No bone expansion or destruction indicate mucocele or acute sinusitis. 3. Mild cervical spondylosis with spinal stenosis at C5-6. Please correlate with clinical factors. THIS IS AN ELECTRONICALLY VERIFIED FINAL REPORT 08/17/2025 2:23 PM - Electronically signed by Yaquelin Jacobs M.D. LC: GARY Report ID: [id number] Reading Location: [id number] Procedure Note Georgia Jacobs MD - 08/17/2025 EXAM DESCRIPTION: CT SOFT TISSUE NECK W CONTRAST REASON FOR STUDY: submandibular nodule Feels a lump on left side of neck- BB placed Small lump (Marked) left anterior neck x 1 year. Hx of prostate CA. TECHNIQUE: Post IV contrast scanning from skull base through lung apices. Reconstructed MPR images reviewed. All images stored on PACS. Automated exposure control was used as a dose optimization technique for this examination. CONTRAST TYPE/DOSE: 100mL of IOVERSOL 350 MG IODINE/ML INTRAVENOUSSYRINGE injected via intravenous COMPARISON: Soft tissue ultrasound comparison from 08/09/2025. FINDINGS: SOFT TISSUE: A marker was placed over the area of palpable concern. The marker overlies the left thyroid cartilage. Extending alongthe inferior margin of the hyoid bone to the upper margin of the thyroidmidline cartilage there is a thick walled cystic nodule measuring 2.2 by 2.5 by1.7 cm. The lesion is not completely cystic and there are several soft tissue density components and septations however no calcifications areidentified. There is no infiltration of paralaryngeal soft tissues. Given locationand appearance, this is likely a thyroglossal duct cyst. No otherabnormalities identified in the area the BB marker. ORAL CAVITY/FLOOR OF MOUTH, PHARYNX, LARYNX, HYPOPHARYNX: Normalappearance of nasopharynx. Yue pharyngeal mucosa appears normal. [place] tonsilsand adenoid tissue appears normal. There is no abnormality of the floor ofmouth. Base of tongue appears normal. Mild artifact from dental faith. Supraglottic larynx is unremarkable. Aryepiglottic folds and epiglottisare normal. The laryngeal structures are normal. LYMPHADENOPATHY: There are a few small lymph nodes within lateralcervical chains bilaterally. There are no abnormal appearing cervical lymph nodes. There are no abnormally enhancing cervical lymph nodes. MAJOR SALIVARY GLANDS: Normal appearance of the submandibular glands and parotid glands. No focal lesion. There is no abnormality in the submandibular space. THYROID: Normal size. No nodules greater than 1 cm. VASCULATURE: No apparent critical stenosis or occlusion. INTRACRANIAL/SKULL BASE/INCLUDED ORBITS: Limited intracranialevaluation. No abnormal findings. PARANASAL SINUSES: There is significant osseous thickening of the right maxillary sinus with a minimal amount of mucus and fluid in keeping with chronic sinusitis. There is complete opacification of the left frontalsinus likely representing frontoethmoidal recess stenosis. No bone expansion or destruction. No findings to indicate mucocele or acute frontalsinusitis.. CERVICAL SPINE: Mild cervical spondylosis with posterior discosteophytic spurring most evident at C5-6. Some degree of edir-jf-leusrkhx spinal stenosis likely.. LUNG APICES: Clear. OTHER: No other significant finding. IMPRESSION: 1. Thick-walled cystic nodule in the midline extending from the inferior margin of the hyoid bone to the upper margin of the thyroid cartilage.Given location and appearance, this is likely a thyroglossal duct cyst.ENTconsult is suggested. If additional imaging is clinically indicated, consider MRI soft tissue neck with contrast protocol by radiologist. 2. Findings of chronic right maxillary sinusitis. Completely opacifyleft frontal sinus likely with obstruction of frontoethmoidal recess. No bone expansion or destruction indicate mucocele or acute sinusitis. 3. Mild cervical spondylosis with spinal stenosis at C5-6. Pleasecorrelate with clinical factors. THIS IS AN ELECTRONICALLY VERIFIED FINAL REPORT 08/17/2025 2:23 PM - Electronically signed by Yaquelin Jacobs M.D. LC: GARY Report ID: [id number] Reading Location: [place] [address] Collins Escobedo MD IMG CT PROCEDURES Final Result * eGFR (08/10/2025 4:00 PM CDT) Pathologist [facility] eGFR 73 >=60 mL/min/1. 73 m2 Comment: Interpretive Data Reference Interval Normal >/= 90 mL/min/1.73m2 Mildly decreased* 60 - 89 mL/min/1.73m2 Mildly to moderately decreased 45 - 59 mL/min/1.73m2 Moderately to severely decreased 30 - 44 mL/min/1.73m2 Severely decreased 15 - 29 mL/min/1.73m2 Kidney Failure < 15 mL/min/1.73m2 *Relative to young adult level Estimated glomerular filtration rate is determined by the 2020 CKD-EPI equation recommended by the National Kidney Foundation (A Unifying Approach to GFR Estimation: Recommendations of the NKF-ASK Task Force on Reassessing the Inclusion of Race in Diagnosing Kidney Disease, JASN 2020). The CKD-EPI equation should not be used for patients with unstable renal function and has not been validated in children and those over 70. Current interpretive data was last reviewed 2021. Blood 08/10/2025 4:00 PM CDT 08/10/2025 4:06 PM CDT us Collins Escobedo MD LAB BLOOD ORDERABLES Final Resu lt [facility] [address] [facility] Department of Laboratories [place], [place] [id number] * Basic metabolic panel (08/10/2025 4:00 PM CDT) [facility] Sodium 138 135 - 145 mmol/L Potassium, pl 4.2 3.3 - 4.9 mmol/L [facility] Chloride 106 97 - 110 mmol/L [facility] CO2 22 22 - 32 mmol/L [facility] Anion gap 10 2 - 15 mmol/L [facility] BUN 24 6 - 25 mg/dL [facility] Creatinine 1.09 0.80 - 1.30 mg/dL [facility] Glucose 102 70 - 199 mg/dL [facility] Comment: Interpretive Data Fasting glucose >/= 126 mg/dl is diagnostic for diabetes. Fasting is defined as no caloric intake for at least 8 hours. Fasting glucose between 100 mg/dl to 125 mg/dl is diagnostic of prediabetes. In a patient with classic symptoms of hyperglycemia or hyperglycemic crisis, a random glucose >/= 200 mg/dl is diagnostic for diabetes. In the absence of unequivocal hyperglycemia, results should be confirmed by repeat testing. The classification and Diagnosis of Diabetes Diabetes Care 2021; 46: S19-S40. Current interpretive data was last revised 2022. Calcium 8.7 8.5 - 10.3 mg/dL ANGELINE CONNER Blood 08/10/2025 4:00 PM CDT 08/10/2025 4:06 PM CDT us Collins Escobedo MD LAB BLOOD ORDERABLES Final Resu lt ANGELINE CONNER [facility] Department [place] [address] * US Soft Tissue Neck (08/05/2025 4:42 PM CDT) Anatomical Region Laterality Modality Head and Neck N/A Ultrasound 08/09/2025 8:49 AM CDT Narrative 08/09/2025 8:54 AM CDT EXAM DESCRIPTION: US SOFT TISSUE HEAD NECK REASON FOR STUDY: Chronic left neck swelling/lump/area of fullness for 1 year. No provided history of trauma or inciting and/or aggravating events. No provided past medical, to include cancer, history. No provided past surgical history. TECHNIQUE: Focused sonographic evaluation of area of complaint reported as left submandibular area performed utilizing grayscale and color Doppler imaging techniques. Images saved to PACS. COMPARISON: No prior imaging of the of the neck available at time of interpretation. FINDINGS: SKIN AND SUBCUTANEOUS TISSUES: No sonographic evidence of mass, focal fluid collection, edema, acute inflammatory changes, and/or foreign bodies. DEEP SOFT TISSUES/MUSCLES: Tipple Supervisor placing caliber measurements at an approximately 3 cm longest single axis isoechoic area at the reported site of complaint of the submandibular left neck. OTHER: No other significant finding. IMPRESSION: 1. Tipple Supervisor placing caliber measurements at an approximately 3 cm longest single axis isoechoic area at the reported site of complaint of the submandibular left neck. 2. CT soft tissue neck with contrast, following placement of overlying skin marker at the site of complaint (matched with provision of relevant clinical information/history for this study), recommended for further evaluation. THIS IS AN ELECTRONICALLY VERIFIED FINAL REPORT 08/09/2025 8:54 AM - Electronically signed by Talon Muro M.D. WILMA T: Report ID: [id number] Reading Location: [id number] Procedure Note Talon Muro MD - 08/09/2025 EXAM DESCRIPTION: US SOFT TISSUE HEAD NECK REASON FOR STUDY: Chronic left neck swelling/lump/area of fullness for 1 year. No provided history of trauma or inciting and/or aggravatingevents. No provided past medical, to include cancer, history. No provided past surgical history. TECHNIQUE: Focused sonographic evaluation of area of complaint reported as left submandibular area performed utilizing grayscale and color Doppler imaging techniques. Images saved to PACS. COMPARISON: No prior imaging of the of the neck available at time of interpretation. FINDINGS: SKIN AND SUBCUTANEOUS TISSUES: No sonographic evidence ofmass, focal fluid collection, edema, acute inflammatory changes, and/or foreign bodies. DEEP SOFT TISSUES/MUSCLES: Tipple Supervisor placing caliber measurements atan approximately 3 cm longest single axis isoechoic area at the reported siteof complaint of the submandibular left neck. OTHER: No other significant finding. IMPRESSION: 1. Tipple Supervisor placing caliber measurements at an approximately 3 cmlongest single axis isoechoic area at the reported site of complaint of the submandibular left neck. 2. CT soft tissue neck with contrast, following placement of overlyingskin marker at the site of complaint (matched with provision of relevantclinical information/history for this study), recommended for further evaluation. THIS IS AN ELECTRONICALLY VERIFIED FINAL REPORT 08/09/2025 8:54 AM - Electronically signed by Talon Muro M.D. WILMA T: Report ID: [id number] Reading Location: [id number] Collins Escobedo MD IM US PROCEDURES Final Result * Surgical pathology (08/04/2025 2:37 PM CDT) Tissue (Gastric/Stomach biopsy) 08/04/2025 2:37 PM CDT Tissue specimen (specimen) (Gastric/Stomach biopsy) 08/04/2025 2:38 PM CDT Narrative [facility] - 08/06/2025 9:33 AM CDT [facility] Department of Pathology [address] [place] [address] Note to Patients: This report may contain a detailed description of human tissue sent by a health care provider to the laboratory for pathologic evaluation. The content of this report is essential for diagnosis and may provide important critical findings. This information may be unfamiliar to patients to review without a medical professional present. It is advised that the patient review this report in the presence of a health care provider who can answer questions and explain the details. Final Report Patient Name: GUSTAVO RIOS : 1955 (Age: 70) Gender: M Address: [address] [place] [address] Hospital #: [id number] Service: Gastro Location: Patient Type: [facility] Taken: 08/04/2025 Received: 08/05/2025 Accessioned: 08/05/2025 Reported: 08/06/2025 Physician(s): MD Collins Galaviz MD Diagnosis: A. Esophagus, irregular Z line, biopsy - Gastroesophageal junctional mucosa with focal intestinal metaplasia (cardia- type mucosa with goblet cells), without definitive endoscopic evidence of Colmenares s esophagus (see comment) - No dysplasia B. Esophagus, proximal and distal, biopsy - Squamous mucosa with no histopathologic abnormality - No changes of eosinophilic esophagitis Diagnosis Comment: According to the [place] [employer] G[employer] (ACG) guidelines (Taawnda et al., Am J Gastroenterol 2021), a diagnosis of Colmenares s esophagus requires both endoscopic evidence of columnar mucosa proximal to the gastroesophageal junction and histologic confirmation of intestinal metaplasia. In the absence of endoscopic findings (i.e., no salmon-colored mucosa extending into the esophagus), biopsies with intestinal metaplasia at the GE junction are best reported descriptively, without labeling as Colmenares s esophagus. Fili Nath MD PhD Report Electronically Reviewed and Signed Out By Fili Nath MD PhD 08/06/2025 09:33:05 Specimen(s) Received: A: Irregular Z line cold biopsy rule out Colmenares's B: Proximal/distal esophageal cold biopsy rule out EOE Microscopic Description: Unless gross-only is specified, the final diagnosis for each specimen is based on a microscopic examination of each tissue sample. Clinical History: The patient is a 70-year-old man with globus sensation. Operative procedure: upper GI endoscopy with biopsy Gross Description Received in two formalin jars labeled with the patient's identifiers. A. Labeled irregular Z-line cold biopsy rule out Colmenares's and consists of six lockwood tissue fragments ranging from 0.1-0.2 cm. Entirely submitted. Labeled A1. Jar 0. B. Labeled proximal/distal esophageal cold biopsy rule out EOE and consists of four lockwood-white tissue fragments ranging from 0.2-0.4 cm. Entirely submitted. Labeled B1. Jar 0. [facility]/08/05/2025 09:17 [place] (ASCP) Microscopic slide review and interpretation for this case was performed at [facility], Department of Surgical Pathology, [address] [facility] [place] [place] [id number], [place] [address] CLIA # [id number] Mina Burnham MD LAB PATHOLOGY ORDERABLES Final Result [facility] * EGD (08/04/2025 2:32 PM CDT) Anatomical Region Laterality Modality Other Narrative Procedure Note Mina Burnham MD - 08/04/2025 2:32 PM CDT [facility] GI ENDOSCOPY Patient Name: uGstavo Rios Procedure Date: 08/04/2025 2:32 PM Date of : 1955 Admit Type: Outpatient Age: 70 Gender: Male Attending MD: Mina Burnham M.D., Room: [facility] ENDOSCOPY ROOM 04 Note Status: Finalized Procedure: Upper GI endoscopy Indications: Globus sensation Referring MD: Collins Escobedo M.D. Providers: Mina Burnham M.D. Medicines: See the Anesthesia note for documentation of the administered medications Complications: No immediate complications. Estimated Blood Loss: Estimated blood loss was minimal. Procedure: Pre-Anesthesia Assessment: - Prior to the procedure, a History and Physicalwas performed, and patient medications and allergieswere reviewed. The risks and benefits of the procedureand the sedation options and risks were discussed withthe patient. All questions were answered and informed consent was obtained. Patient identification and proposed procedure were verified. After reviewingthe risks and benefits, the patient was deemed in satisfactory condition to undergo the procedure.The anesthesia plan was to use monitored anesthesiacare (MAC). Immediately prior to administration of medications, the patient was re-assessed foradequacy to receive sedatives. The heart rate, respiratory rate, oxygen saturations, blood pressure, adequacyof pulmonary ventilation, and response to care were monitored throughout the procedure. The physical status of the patient was re-assessed after the procedure. The benefits, risks, and alternatives to theprocedure and sedation were discussed and informed consentwas obtained. The scope was passed under direct vision. The GIF-H190 Upper endoscope was introduced through the mouth, and advanced to the second part of duodenum. The upper GI endoscopy was accomplished without difficulty. The patient tolerated the procedure well. Findings: The Z-line was irregular without nodularity (examined with HD WL and NBI). This was biopsied with a cold forceps for evaluation to ruleout Colmenares's Esophagus. The examined esophagus revealed mild trachealization. Biopsies were obtained from the proximal and distal esophagus with cold forceps for histology of suspected eosinophilic esophagitis. A small sliding type hiatal hernia was present. The entire examined stomach was normal. The examined duodenum was normal. Impression: - Z-line irregular. Biopsied. - Normal esophagus. - Small hiatal hernia. - Normal stomach. - Normal examined duodenum. - Biopsies were taken with a cold forceps for evaluation of eosinophilic esophagitis. Recommendation: - Await pathology results. - Resume previous diet today. - Discharge patient to home. - Patient has a contact number available for emergencies. The signs and symptoms of potential delayed complications were discussed with thepatient. Return to normal activities tomorrow. Written discharge instructions were provided to thepatient. - I would be happy to see you in my GI clinic ifyou have further questions or concerns or if symptoms progress Mina Burnham M.D. 08/04/2025 2:45:10 PM Number of Addenda: 0 Note Initiated On: 08/04/2025 2:32 PM Recognized by the [employer] [employer] for promoting quality in endoscopy us Mina Burnham MD ENDOSCOPY PROCEDURES Daniella l Result * GI - RESULT (08/04/2025) Anatomical Region Laterality Modality Other Collins Escobedo MD Final Result from Last 3 Months Insurance [facility] MEDICARE [facility] MEDICARE MEDICARE [facility] Care Teams Drop Board Man Relationship Specialty Start Date End Date Collins Escobedo MD [address] [facility] [address] [place] [address] PCP - General Family Medicine 07/06/25
--- OUTSIDE RECORDS SUMMARY | 2025-10-19 13:47 | XMS_ITS | Clinical Summary ---
Author Organization [facility] [address] Address [address] [place] [address] Care Team Providers Care Bacteriology Professor Name Role Phone Collins Escobedo MD Primary Care Provider [phone] Allergies Active Allergy Reactions Criticality Noted Date [...] 10/07/2025 Assessment & Plan (10/07/2025 11:31 AM HARD METALS ENGRAVER HAND): Flonase 2 sprays into each nostril while [...] 10/07/2025 Assessment & Plan (10/08/2025 8:24 AM HARD METALS ENGRAVER HAND): Discussed that this was an incidental finding [...] Department Care Team Description 5 Orders Only [facility] G[facility]ology at [place] [address] [facility] [address] [place] [address] Mina Burnham MD Screening for colon cancer (Primary Dx); Nausea and vomiting, unspecified vomiting type 5 7:55 AM HARD METALS ENGRAVER HAND - 5 11:59 PM HARD METALS ENGRAVER HAND Hospital Encounter [facility] [address] [place] [address] History of tobacco abuse Discharge Disposition: Discharge to home or self care 5 Results Follow-Up [address] [place] [address] Collins Escobedo MD Abdominal Aortic Aneurysm Screening 5 11:15 AM HARD METALS ENGRAVER HAND Office Visit [facility] [address] [place] [phone] Lidia Sofia, Chronic frontal sinusitis (Primary Dx); Thyroglossal duct cyst 5 8:00 AM HARD METALS ENGRAVER HAND Office Visit [address] [place] [address] Collins Escobedo MD Medicare annual wellness visit, subsequent (Primary Dx); Colon cancer screening; History of tobacco abuse 5 Results Follow-Up [address] [place] [address] Neck Soft Tissue W Contrast 5 11:00 AM CDT - 5 11:59 PM CDT Hospital Encounter [facility] [address] [place] [address] Mass of left submandibular region Discharge Disposition: Discharge to home or self care 5 Results Follow-Up [facility] Gastroenterology at [place] [address] [facility] [address] [place] [address] Mina Burnham MD Surgical pathology 5 3:50 PM CDT Lab [facility] [address] [place] [address] Mass of left submandibular region 5 Results Follow-Up [facility] Family Medicine [address] [facility] [address] [place] [address] Collins Escobedo MD US Soft Tissue Neck 5 4:20 PM CDT - 5 11:59 PM CDT Hospital Encounter [facility] US [address] [place] [address] Localized swelling, mass and lump, neck Discharge Disposition: Discharge to home or self care 5 2:30 PM CDT Anesthesia Event [facility] GI Lab [address] [place] [address] Luana Muhammad MD 5 2:30 PM CDT - 5 3:00 PM CDT Surgery [facility] GI Lab [address] [place] [address] Mina Burnham MD ESOPHAGOGASTRODUODENOSCOPY BIOPSY 5 1:17 PM CDT - 5 3:34 PM CDT Hospital Encounter [facility] GI Lab [address] [place] [address] Mina Burnham MD Globus sensation Discharge Disposition: Discharge to home or self care 5 Orders Only [facility] Health Information Management [address] [place] [address] Collins Escobedo MD 5 8:00 AM CDT Office Visit [facility] Gastroenterology at [address] [place] [address] Mandie Reddy, JADE Globus sensation [...] on file Legal Sex Male 12:44 AM HARD METALS ENGRAVER HAND Gender Identity Not on file Sexual Orientation Not on file Last Filed Vital Signs Vital Sign Reading Time Taken Comments Blood Pressure 130/74 10/05/2025 8:09 AM HARD METALS ENGRAVER HAND Pulse 68 10/05/2025 8:09 AM HARD METALS ENGRAVER HAND Temperature 36.6 C (97.9 F) 08/04/2025 2:48 PM CDT Respiratory Rate 18 10/05/2025 8:09 AM HARD METALS ENGRAVER HAND Oxygen Saturation 96% 10/05/2025 8:09 AM HARD METALS ENGRAVER HAND Inhaled Oxygen Concentration - - Weight 92.3 kg (203 lb 6.4 oz) 10/05/2025 8:09 A M HARD METALS ENGRAVER HAND Height 180.3 cm (5' 11) 10/05/2025 8:09 AM HARD METALS ENGRAVER HAND Body Mass Index 28.37 10/05/2025 8:09 AM HARD METALS ENGRAVER HAND Plan of Treatment Upcoming Encounters Date Type Department Care Team (Late st Contact Info) Description 11/16/2025 7:15 AM HARD METALS ENGRAVER HAND Hospital Encounter [facility] GI Lab [address] [place] [address] Mina Burnham MD [address] [place] [address] [address] [place] [address] 11/16/2025 7:15 AM HARD METALS ENGRAVER HAND - 11/16/2025 7:30 AM HARD METALS ENGRAVER HAND Surgery [facility] GI Lab [address] [place] [address] Mina Burnham MD [facility] [address] [place] [address] COLONOSCOPY Scheduled Procedures Name Priority Associated Diagnoses Date/Ti me COLONOSCOPY Screening for colon cancer 11/16/2025 7:15 AM HARD METALS ENGRAVER HAND Health Maintenance Due Date Last Done Comments [...] Read Routine (OP Routine) 10/09/2025 8:18 AM HARD METALS ENGRAVER HAND History of tobacco abuse CT SOFT TISSUE [...] Abdominal Aortic Aneurysm Screening (10/09/2025 8:18 AM HARD METALS ENGRAVER HAND) Anatomical Region Laterality Modality Abdomen Ultrasound 10/09/2025 8:58 AM HARD METALS ENGRAVER HAND Impressions 10/09/2025 8:58 AM HARD METALS ENGRAVER HAND No abdominal aortic aneurysm.? REFERENCE: Please see [...] 67:[id number] Electronically signed by: Vish Michael M.D. Narrative 10/09/2025 8:58 AM HARD METALS ENGRAVER HAND EXAM DESCRIPTION: US ABDOMINAL AORTIC ANEURYSM SCREENING [...] of nasopharynx. Yue pharyngeal mucosa appears normal. Crosby tonsils and adenoid tissue appears normal. There is no abnormality of the floor of mouth. Base of tongue appears normal. Mild artifact from dental latter-day. Supraglottic larynx is unremarkable. Aryepiglottic folds and [...] most evident at C5-6. Some degree of dili-wz-wnruohkm spinal stenosis likely.. LUNG APICES: Clear. OTHER: [...] Yaquelin Jacobs M.D. LC: GARY Report ID: [id number] Reading Location: [id number] Procedure Note Georgia Jacobs MD - 08/17/2025 [...] of nasopharynx. Yue pharyngeal mucosa appears normal. Crosby tonsilsand adenoid tissue appears normal. There is no abnormality of the floor ofmouth. Base of tongue appears normal. Mild artifact from dental latter-day. Supraglottic larynx is unremarkable. Aryepiglottic folds and [...] most evident at C5-6. Some degree of chxd-lx-axwiknlz spinal stenosis likely.. LUNG APICES: Clear. OTHER: [...] Yaquelin Jacobs M.D. LC: GARY Report ID: [id number] Reading Location: [place] [address] Collins Escobedo MD IMG CT PROCEDURES Final Result * eGFR (08/10/2025 4:00 PM CDT) Pathologist [facility] eGFR 73 >=60 mL/min/1. 73 m2 Comment: [...] MD LAB BLOOD ORDERABLES Final Resu lt [facility] [address] [facility] Department of Laboratories [place], [place] [id number] * Basic metabolic panel (08/10/2025 4:00 PM CDT) [facility] Sodium 138 135 - 145 mmol/L Potassium, pl 4.2 3.3 - 4.9 mmol/L [facility] Chloride 106 97 - 110 mmol/L [facility] CO2 22 22 - 32 mmol/L [facility] Anion gap 10 2 - 15 mmol/L [facility] BUN 24 6 - 25 mg/dL [facility] Creatinine 1.09 0.80 - 1.30 mg/dL [facility] Glucose 102 70 - 199 mg/dL [facility] Comment: Interpretive Data Fasting glucose >/= 126 [...] BLOOD ORDERABLES Final Resu lt ANGELINE CONNER [facility] [place] [address] * US Soft Tissue Neck (08/05/2025 4:42 [...] changes, and/or foreign bodies. DEEP SOFT TISSUES/MUSCLES: Tool And Die Designer placing caliber measurements at an approximately 3 cm longest single axis isoechoic area at the reported site of complaint of the submandibular left neck. OTHER: No other significant finding. IMPRESSION: 1. Tool And Die Designer placing caliber measurements at an approximately 3 [...] Talon Muro M.D. WILMA T: Report ID: [id number] Reading Location: [id number] Procedure Note Talon Muro MD - 08/09/2025 [...] changes, and/or foreign bodies. DEEP SOFT TISSUES/MUSCLES: Tool And Die Designer placing caliber measurements atan approximately 3 cm longest single axis isoechoic area at the reported siteof complaint of the submandibular left neck. OTHER: No other significant finding. IMPRESSION: 1. Tool And Die Designer placing caliber measurements at an approximately 3 [...] Talon Muro M.D. WILMA T: Report ID: [id number] Reading Location: [id number] Collins Escobedo MD IM US PROCEDURES Final Result * Surgical pathology (08/04/2025 2:37 PM CDT) Tissue (Gastric/Stomach biopsy) 08/04/2025 2:37 PM CDT Tissue specimen (specimen) (Gastric/Stomach biopsy) 08/04/2025 2:38 PM CDT Narrative PATHOLOGY [facility] - 08/06/2025 9:33 AM CDT [facility] Department of Pathology [address] [place] [address] Note to Patients: This report may contain [...] : 1955 (Age: 70) Gender: M Address: [address] [place] [address] Hospital #: [id number] Service: Gastro Location: Patient Type: [facility] OUTPATIENT Taken: 08/04/2025 Received: 08/05/2025 Accessioned: 08/05/2025 [...] eosinophilic esophagitis Diagnosis Comment: According to the [place] [employer] G[employer] (ACG) guidelines (Tawanda et al., Am J Gastroenterol 2021), a [...] cm. Entirely submitted. Labeled B1. Jar 0. [facility]/08/05/2025 09:17 [place] (ASCP) Microscopic slide review and interpretation for this case was performed at [facility], Department of Surgical Pathology, [address] [facility] [place], [place] [id number], [place] [address] CLIA # [id number] Mina Burnham MD LAB PATHOLOGY ORDERABLES Final Result PATHOLOGY [facility] * EGD (08/04/2025 2:32 PM CDT) Anatomical Region Laterality Modality Other Narrative Procedure Note Mina Burnham MD - 08/04/2025 2:32 PM CDT [facility] GI ENDOSCOPY Patient Name: Gustavo Rios Procedure Date: 08/04/2025 2:32 PM Date of : 1955 Admit Type: Outpatient Age: 70 Gender: Male Attending MD: Mina Burnham M.D., Room: [facility] ENDOSCOPY ROOM 04 Note [...] On: 08/04/2025 2:32 PM Recognized by the [employer] for promoting quality in endoscopy us Mina Burnham MD ENDOSCOPY PROCEDURES Daniella l Result * GI - RESULT (08/04/2025) Anatomical Region Laterality Modality Other Collins Escobedo MD Final Result from Last 3 Months Insurance [facility] MEDICARE [facility] MEDICARE MEDICARE [facility] Care Teams Bacteriology Professor Relationship Specialty Start Date End Date Collins Escobedo MD [address] [facility] [place] [address] PCP - General Family Medicine 07/06/25
--- OUTSIDE RECORDS SUMMARY | 2025-10-19 13:47 | XMS_ITS | Clinical Summary ---
Author Organization [facility] Address [address] [place] [address] Phone Care Team Providers Care Model Photographers' Name Role Phone Mike Reyes MD Primary Care Provider Immunizations Immunization Administration Dates Next Due (PFIZER)(12 YR UP) COVID-19 VACCINE - EMERGENCY USE AUTHORIZATION, MRNA, [id number](PF) 30 MCG/0.3 ML IM SUSP 12/14/2020,11/23/2020 Social History Tobacco Use Types Packs/Day Years Used Date Smoking Tobacco: Never Assessed Sex and Gender Information Value Date Recorded Sex Assigned at Not on file Legal Sex Male 8:36 PM BLEACH MAKER Gender Identity Not on file Sexual Orientation [...] BCBS BLUE ACCESS/TRUE BLUE PPO Care Teams Model Photographers' Relationship Specialty Start Date End Date Mike Reyes MD [address] [place] [phone] PCP - General Internal Medicine 12/14/20
--- OUTSIDE RECORDS SUMMARY | 2025-10-19 13:47 | XMS_ITS | Clinical Summary ---
Author Organization [employer] [facility] [place] Address [address] [place] [address] Care Team Providers Care Blind Teacher Name Role Phone Mike Reyes MD Primary Care Provide r Unavailable Immunizations Immunization Administration Dates Next Due Fluzone Quadrivalent Single Dose Vial 08/04/2019 Twinrix Hep A/ Hep B Prefilled Syringe 5 Social History Tobacco Use Types Packs/Day Years Used Date Smoking Tobacco: Never Assessed Sex and Gender Information Value Date Recorded Sex Assigned at Not on file Legal Sex Male 1:53 PM EDT Gender Identity Not on file Sexual Orientation Not on file Plan of Treatment Not on file Medical Devices Not on file Care Teams Blind Teacher Relationship Specialty Start Date End Date Mike Reyes MD PCP - Plc Technician 08/04/19
== END 2025-10-19 13:02 | disposition short-term general hospital (02) ==
PROVIDERS: Emergency Provider Emergency Medicine
DX: I63.9 Cerebral infarction, unspecified (principal); R29.704 NIHSS score 4; R53.1 Weakness; C61 Malignant neoplasm of prostate; G47.30 Sleep apnea, unspecified; Z85.828 Personal history of other malignant neoplasm of skin; Z87.891 Personal history of nicotine dependence; I49.1 Atrial premature depolarization; I45.10 Unspecified right bundle-branch block
CPT/HCPCS: 36415; 37195; 70450; 70496; 70498; 71045; 80053; 82948; 83605; 84484; 85025; 85610; 85730; 93005; 99285; J3101; Q9967